=== PATIENT | female | born 1940 | race Caucasian/White ===

== ENCOUNTER 2016-08-11 11:42 | Observation (INO) | payer OTHER, BC ==
[2016-08-11 12:39] VITALS: BMI 31.9
[2016-08-11] MEDS ORDERED: morphine CARPU-JECT 4 MG/1 ML DISP.SYRIN IVPUSH ONE (13:02)
[2016-08-11] MEDS ORDERED: morphine CARPU-JECT 4 MG/1 ML DISP.SYRIN ONE (13:05)
--- NOTE | 2016-08-11 13:25 | PDOC ---
*Physical Exam - Vital Signs Last Vital Signs Temp Pulse Resp BP Pulse Ox 97.8 F 87 18 109/67 97 08/11/16 12:37 08/11/16 12:37 08/11/16 12:37 08/11/16 12:37 08/11/16 12:37 - Physical Exam Comments: 08/11/16 13:25 MIDLEVEL NOTE Pt seen by Midlevel Provider under my direct supervision. Pt interviewed and examined. Ancillary studies reviewed. I agree with plan as outlined by Midlevel Provider. 08/11/16 16:17 EKG Normal sinus rhythm 79, left axis deviation -27 Normal SD interval Incomplete bundle branch block with a QRS duration of 108 Prolonged QT with a QTC of 516 There is diffuse nonspecific ST-T wave abnormalities 08/11/16 16:18 Laboratory Results - last 24 hr 08/11/16 08/11/16 14:20 14:20 WBC 8.3 RBC 4.74 Hgb 13.5 Hct 41.2 MCV 86.8 MCHC 32.8 RDW 14.1 Plt Count 214 MPV 9.1 Neutrophils % 80.9 Lymphocytes % 11.3 Monocytes % 5.9 Eosinophils % 1.1 Basophils % 0.8 Sodium 139 Potassium 4.6 Chloride 101 Carbon Dioxide 30 Anion Gap 8 BUN 28 H Creatinine 0.9 Creat Clearance w eGFR > 60 Random Glucose 301 H* Calcium 9.0 Total Bilirubin 0.5 AST 38 H ALT 41 Alkaline Phosphatase 115 Creatine Kinase 79 Troponin I < 0.02 Total Protein 6.9 Albumin 3.6 08/11/16 16:19 X-rays fractured right humerus, fractured patella ED Treatment Course - LABORATORY CBC & Chemistry Diagram: 08/12/16 06:05 08/12/16 06:05 - Medications Given in the ED: ED Medications Discontinued Medications Generic Name Dose Route Start Last Admin Trade Name Freq PRN Reason Stop Dose Admin Morphine Sulfate 4 mg 08/11/16 13:02 08/11/16 13:12 Morphine Injection - IVPUSH 08/11/16 13:03 4 mg ONCE ONE Administration *DC/Admit/Observation/Transfer Diagnosis at time of Disposition: EKG abnormality Humeral shaft fracture Qualifiers: Encounter type: initial encounter Fracture type: closed Fracture morphology: spiral Fracture alignment: displaced Laterality: right Qualified Code(s): S42.341A - Displaced spiral fracture of shaft of humerus, right arm, initial encounter for closed fracture Patella fracture Qualifiers: Encounter type: initial encounter Fracture type: closed Fracture morphology: transverse Fracture alignment: nondisplaced Laterality: right Qualified Code(s) : S82.034A - Nondisplaced transverse fracture of right patella, initial encounter for closed fracture - Discharge Dispostion Condition at time of disposition: Stable Admit: Yes - Prescriptions
--- NOTE | 2016-08-11 14:21 | PDOC ---
History of Present Illness - General Chief Complaint: Injury Stated Complaint: FALL/ARM INJURY Time Seen by Provider: 08/11/16 13:01 History Source: Patient Exam Limitations: No Limitations - History of Present Illness Initial Comments: 08/11/16 14:36 Chief complaint: Fall Patient is 75-year-old female history of diabetes day she was leaving a diner and tripped over a cold in the parking lot injuring her right upper arm and knee area and patient has not been able to walk since. Patient states that she slightly hit the right side of her face, not on any antiplatelet or anticoagulation. Patient denies any dizziness or syncope prior to fall or LOC before after fall. Was witnessed. GENERAL/CONSTITUTIONAL: No fever, weakness. dizziness HEAD, EYES, EARS, NOSE AND THROAT: No change in vision. No ear pain or discharge. No sore throat. CARDIOVASCULAR: No chest pain RESPIRATORY: No shortness of breath or cough GASTROINTESTINAL: No pain, nausea, vomiting, diarrhea or constipation GENITOURINARY: No dysuria MUSCULOSKELETAL: No neck or back pain, + right upper arm, right knee SKIN: No rash NEUROLOGIC: No headache, vertigo, loss of consciousness, or loss of sensation. GENERAL: The patient is awake, alert, and fully oriented, in no acute distress. HEAD: Normal with no signs of trauma. EYES: Pupils equal, round and reactive to light, sclera anicteric, conjunctiva clear. EOMs intact ENT: pharynx: no erythema, no exudate, uvula midline NECK: supple CHEST: clear, nontender, rr ABD: soft, nontender EXTREMITIES: Right upper arm with tenderness, unable to move, no clavicular tenderness. Elbow with no pain or swelling, and arm distal to elbow without injury, good range of motion to the wrist and fingers with good strength and neurovascular intact. Right knee with mild swelling, contusion, tenderness, pain with movement. Rest of extremities, Normal range of motion, no edema. NEUROLOGICAL: Normal speech SKIN: Warm, Dry Past History - Past Medical History Allergies/Adverse Reactions: Allergies Allergy/AdvReac Type Severity Reaction Status Date / Time No Known Allergies Allergy Verified 08/11/16 12:39 Home Medications: Ambulatory Orders Cetirizine HCl 10 mg PO DAILY 08/11/16 Glipizide [Glipizide ER] 2.5 mg PO DAILY 08/11/16 Lisinopril 10 mg PO DAILY 08/11/16 Metformin HCl 500 mg PO DAILY 08/11/16 Montelukast Na [Singulair -] 10 mg PO HS 08/11/16 Simvastatin 20 mg PO DAILY 08/11/16 - Psycho/Social/Smoking Cessation Hx Suicidal Ideation: No Smoking History: Never smoked Information on smoking cessation initiated: No *Physical Exam - Vital Signs Last Vital Signs Temp Pulse Resp BP Pulse Ox 97.8 F 87 18 109/67 97 08/11/16 12:37 08/11/16 12:37 08/11/16 12:37 08/11/16 12:37 08/11/16 12:37 Procedures - Splinting Splint Location: Right: Knee Pre-Proc Neuro Vasc Exam: normal Pre-Made Type: velcro Post-Proc Neuro Vasc Exam: normal Sling: Yes Heart Score/ECG Review - ECG Intrepretation Rhythm: Regular Rhythm Comment:: 08/11/16 15:38 Normal sinus rhythm at 79 T-wave abnormalities, QTC 516 ED Treatment Course - LABORATORY CBC & Chemistry Diagram: 08/11/16 14:20 08/11/16 14:20 - RADIOLOGY Radiology Studies Ordered: Category Date Time Status FEMUR-RIGHT [RAD] Stat Radiology 08/11/16 13:11 Ordered HUMERUS-RIGHT [RAD] Stat Radiology 08/11/16 13:11 Ordered KNEE 3 POS-RIGHT [RAD] Stat Radiology 08/11/16 13:11 Ordered PELVIS [RAD] Stat Radiology 08/11/16 13:11 Ordered SHOULDER W/TRANS-RIGHT [RAD] Stat Radiology 08/11/16 13:11 Ordered - Medications Given in the ED: ED Medications Discontinued Medications Generic Name Dose Route Start Last Admin Trade Name Freq PRN Reason Stop Dose Admin Morphine Sulfate 4 mg 08/11/16 13:02 08/11/16 13:12 Morphine Injection - IVPUSH 08/11/16 13:03 4 mg ONCE ONE Administration Medical Decision Making - Medical Decision Making 08/11/16 14:39 Patient is diabetic, mechanical fall, with injury to the right upper arm and leg , patient was given IV morphine for pain, patient will get x-rays, will do labs given that patient is unable to walk. Will reassess 08/11/16 15:39 Patient with fractured right humerus, fractured patella, due to pain and difficulty moving, ambulating Unable to be safely discharged home, will discuss with hospitalist and Ortho. Discussed with CATRACHITA Ramírez from Dr. Baugh's service non-operative at this time, will place in sling and knee immobilizer *DC/Admit/Observation/Transfer Diagnosis at time of Disposition: EKG abnormality Humeral shaft fracture Qualifiers: Encounter type: initial encounter Fracture type: closed Fracture morphology: spiral Fracture alignment: displaced Laterality: right Qualified Code(s): S42.341A - Displaced spiral fracture of shaft of humerus, right arm, initial encounter for closed fracture Patella fracture Qualifiers: Encounter type: initial encounter Fracture type: closed Fracture morphology: transverse Fracture alignment: nondisplaced Laterality: right Qualified Code(s) : S82.034A - Nondisplaced transverse fracture of right patella, initial encounter for closed fracture - Discharge Dispostion Condition at time of disposition: Stable Admit: Yes
[2016-08-11 14:33] LABS: BASOPHIL 0.8 % (0-2.0); EOSINOPHIL 1.1 % (0-4.5); MCH 28.5 pg (25.7-33.7); MCHC 32.8 g/dl (32.0-36.0); MEAN CELL VOLUME 86.8 fl (80-96); MEAN PLT VOLUME 9.1 fl (7.5-11.1); NEUTROPHILS 80.9 % (42.8-82.8); PLATELET COUNT 214 K/MM3 (134-434); RDW 14.1 % (11.6-15.6); WHITE BLOOD COUNT 8.3 K/mm3 (4.0-10.0)
[2016-08-11 14:49] LABS: ALBUMIN 3.6 g/dl (3.4-5.0); ANION GAP 8 (8-16); BILIRUBIN,TOTAL 0.5 mg/dL (0.2-1.0); CO2 30 mmol/L (21-32); CREATININE 0.9 mg/dL (0.55-1.02); SGOT/AST 38 U/L (15-37); SGPT/ALT 41 U/L (12-78); TOT PROT 6.9 g/dl (6.4-8.2)
[2016-08-11 14:51] LABS: ALK PHOS 115 U/L (45-117); TROPONIN I < 0.02 ng/ml (0.00-0.05)
[2016-08-11 14:54] LABS: GLUCOSE,RANDOM 301 mg/dL (74-106)
[2016-08-11] MEDS ORDERED: morphine CARPU-JECT 2 MG/1 ML DISP.SYRIN IVPUSH ONE (15:37)
--- NOTE | 2016-08-11 16:05 | HP ---
CHIEF COMPLAINT: PCP: HISTORY OF PRESENT ILLNESS: 75-year-old female history of diabetes day she was leaving a diner and tripped in the parking lot injuring her right arm and right knee and has not been able to walk since. Patient states that she slightly hit the right side of her face, but no LOC. No headaches or vomiting. ER course was notable for: (1) right humerus x ray (2) right patella x ray (3) CXR Recent Travel: denies PAST MEDICAL HISTORY: DM , HTN, Dyslipidemia PAST SURGICAL HISTORY: hysterectomy, right tibia plateau fracture surgery Social History: Smoking: no Alcohol:no Drugs: no Family History: Allergies No Known Allergies Allergy (Verified 08/11/16 12:39) HOME MEDICATIONS: Home Medications Medication Instructions Recorded Cetirizine HCl 10 mg PO DAILY 08/11/16 Glipizide [Glipizide ER] 2.5 mg PO DAILY 08/11/16 Lisinopril 10 mg PO DAILY 08/11/16 Metformin HCl 500 mg PO DAILY 08/11/16 Montelukast Na [Singulair -] 10 mg PO HS 08/11/16 Simvastatin 20 mg PO DAILY 08/11/16 REVIEW OF SYSTEMS CONSTITUTIONAL: Absent: fever, chills, diaphoresis, generalized weakness, malaise, loss of appetite, weight change HEENT: Absent: rhinorrhea, nasal congestion, throat pain, throat swelling, difficulty swallowing, mouth swelling, ear pain, eye pain, visual changes CARDIOVASCULAR: Absent: chest pain, syncope, palpitations, irregular heart rate, lightheadedness , peripheral edema RESPIRATORY: Absent: cough, shortness of breath, dyspnea with exertion, orthopnea, wheezing, stridor, hemoptysis GASTROINTESTINAL: Absent: abdominal pain, abdominal distension, nausea, vomiting, diarrhea, constipation, melena, hematochezia GENITOURINARY: Absent: dysuria, frequency, urgency, hesitancy, hematuria, flank pain, genital pain MUSCULOSKELETAL: Absent: myalgia, joint swelling, back pain, neck pain +right knee pain and right humerus pain SKIN: Absent: rash, itching, pallor HEMATOLOGIC/IMMUNOLOGIC: Absent: easy bleeding, easy bruising, lymphadenopathy ENDOCRINE: Absent: unexplained weight gain, unexplained weight loss, heat intolerance, cold intolerance NEUROLOGIC: Absent: headache, focal weakness or paresthesias, dizziness, unsteady gait, seizure, mental status changes, bladder or bowel incontinence PSYCHIATRIC: Absent: anxiety, depression, suicidal or homicidal ideation, hallucinations. PHYSICAL EXAMINATION Vital Signs - 24 hr 08/11/16 12:37 Temperature 97.8 F Pulse Rate 87 Respiratory 18 Rate Blood Pressure 109/67 O2 Sat by Pulse 97 Oximetry (%) GENERAL: Awake, alert, and fully oriented, in no acute distress. HEAD:right cheek abrasion EYES: Pupils equal, round and reactive to light, extraocular movements intact, sclera anicteric, conjunctiva clear EARS, NOSE, THROAT: Ears normal, nares patent, oropharynx clear without exudates. Moist mucous membranes. NECK: Normal range of motion, supple without lymphadenopathy, JVD, or masses. LUNGS: Breath sounds equal, clear to auscultation bilaterally. No wheezes, and no crackles. No accessory muscle use. HEART: Regular rate and rhythm, normal S1 and S2 without murmur, rub or gallop. ABDOMEN: Soft, nontender, not distended, normoactive bowel sound MUSCULOSKELETAL: Normal range of motion at all joints. No bony deformities or tenderness. No CVA tenderness. UPPER EXTREMITIES: 2+ pulses, warm, well-perfused. No cyanosis. No clubbing, right arm tenderness, no obvious deformities. Decreased right handgrip. LOWER EXTREMITIES: 2+ pulses, warm, well-perfused. No calf tenderness. No peripheral edema. NEUROLOGICAL: Cranial nerves II-XII intact. Normal speech. PSYCHIATRIC: Cooperative. Good eye contact. Appropriate mood and affect. SKIN: Warm, dry, normal turgor Laboratory Results - last 24 hr 08/11/16 08/11/16 14:20 14:20 WBC 8.3 RBC 4.74 Hgb 13.5 Hct 41.2 MCV 86.8 MCHC 32.8 RDW 14.1 Plt Count 214 MPV 9.1 Neutrophils % 80.9 Lymphocytes % 11.3 Monocytes % 5.9 Eosinophils % 1.1 Basophils % 0.8 Sodium 139 Potassium 4.6 Chloride 101 Carbon Dioxide 30 Anion Gap 8 BUN 28 H Creatinine 0.9 Creat Clearance w eGFR > 60 Random Glucose 301 H* Calcium 9.0 Total Bilirubin 0.5 AST 38 H ALT 41 Alkaline Phosphatase 115 Creatine Kinase 79 Troponin I < 0.02 Total Protein 6.9 Albumin 3.6 Xray of right humerus - acute right humerus fracture xray of right knee- acute patellar fracture, old tibial plateau fracture EKG- NSR, nonspecific T wave changes ASSESSMENT/PLAN: 75yo female s/p fall and acute fractures to right humerus and right patella, unable to ambulate. #Right Patella, right humerus fracture-nonambulatory -admit to observation -orthopedics consultation - Dr. Francisco -morphine 2mg IV PRN if pain -joint immobilization #DM on metformin and glipizide -Novolog sliding scale -diabetic diet #HTN-controlled -lisinopril 10mg daily DVT ppx- moderate to high risk for DVT/PE due to 2 fracture sites and immobilization -enoxaparin 40mg Sc q24hrs Visit type - Emergency Visit Emergency Visit: Yes ED Registration Date: 08/11/16 Care time: The patient presented to the Emergency Department on the above date and was hospitalized for further evaluation of their emergent condition. - New Patient This patient is new to me today: Yes Date on this admission: 08/11/16 - Critical Care Critical Care patient: No
[2016-08-11] MEDS ORDERED: morphine CARPU-JECT 2 MG/1 ML DISP.SYRIN ONE (16:16)
[2016-08-11 16:21] LABS: INR 1.06 (0.82-1.09); PROTHROMBIN TIME (PATIENT) 11.7 SEC (9.98-11.88)
[2016-08-11 16:23] LABS: ACTIVATED PTT 28.9 SECONDS (26.9-34.4)
--- NOTE | 2016-08-11 18:40 | EKG ---
Test Reason : Blood Pressure : / mmHG Vent. Rate : 079 BPM Atrial Rate : 079 BPM P-R Int : 170 ms QRS Dur : 108 ms QT Int : 450 ms P-R-T Axes : 013 -27 110 degrees QTc Int : 516 ms SINUS RHYTHM WITH OCCASIONAL PREMATURE VENTRICULAR COMPLEXES NON-SPECIFIC INTRA-VENTRICULAR CONDUCTION DELAY ANTEROSEPTAL INFARCT (CITED ON OR BEFORE 11-AUG-2016) T WAVE ABNORMALITY, CONSIDER LATERAL ISCHEMIA ABNORMAL ECG WHEN COMPARED WITH ECG OF 15-DEC-2004 20:47, PREMATURE VENTRICULAR COMPLEXES ARE NOW PRESENT QRS AXIS SHIFTED LEFT Confirmed by PRASHANTH SCHREIBER MD ([id number]) on 08/11/2016 6:39:56 PM Referred By: Confirmed By:PRASHANTH SCHREIBER MD
[2016-08-11] MEDS: morphine CARPU-JECT 2 MG/1 ML DISP.SYRIN IVPUSH PRN (20:12)
--- NOTE | 2016-08-11 20:45 | CONSULT ---
Consult Consult Specialty:: orthopedics - History of Present Illness Chief Complaint: right knee, right arm History of Present Illness: 75y/o female c/o right arm and right knee pain since earlier today. She fell after she tripped leaving a diner. She was transported to the ER and had x-rays and was found to have a fracture of her right patella and humerus. She denies any numbness or tingling in her extremities. Her pain is worse with use and better with rest. She does have hx of tibia plateau fracture [place]IF [place] [address] Baugh in the right knee. - Past Medical History Cardio/Vascular: Yes: HTN, Hyperlipdemia Endocrine: Yes: Diabetes Mellitus - Alcohol/Substance Use Hx Alcohol Use: No - Smoking History Smoking history: Never smoked Home Medications - Allergies Allergies/Adverse Reactions: Allergies Allergy/AdvReac Type Severity Reaction Status Date / Time No Known Allergies Allergy Verified 08/11/16 12:39 - Home Medications Home Medications: Ambulatory Orders Cetirizine HCl 10 mg PO DAILY 08/11/16 Glipizide [Glipizide ER] 2.5 mg PO DAILY 08/11/16 Lisinopril 10 mg PO DAILY 08/11/16 Metformin HCl 500 mg PO DAILY 08/11/16 Montelukast Na [Singulair -] 10 mg PO HS 08/11/16 Simvastatin 20 mg PO DAILY 08/11/16 Review of Systems - Review of Systems Constitutional: reports: No Symptoms Eyes: reports: No Symptoms HENT: reports: No Symptoms Neck: reports: No Symptoms Cardiovascular: reports: No Symptoms Respiratory: reports: No Symptoms Gastrointestinal: reports: No Symptoms Genitourinary: reports: No Symptoms Breasts: reports: No Symptoms Reported Musculoskeletal: reports: Extremity Pain Integumentary: reports: No Symptoms Neurological: reports: No Symptoms Endocrine: reports: No Symptoms Hematology/Lymphatic: reports: No Symptoms Psychiatric: reports: No Symptoms Physical Exam Vital Signs: Vital Signs Temperature 97.5 F L 08/11/16 16:01 Pulse Rate 83 08/11/16 17:25 Respiratory Rate 18 08/11/16 17:25 Blood Pressure 95/58 08/11/16 17:25 O2 Sat by Pulse Oximetry (%) 94 L 08/11/16 17:25 Constitutional: Yes: Well Nourished, No Distress HENT: Yes: Normocephalic Musculoskeletal: Yes: Other (Right arm: no open wounds. Mild edema and ecchymosis of the right arm. No sign of infection. no erythema. Tenderness over the midshaft of the humerous. Compartments soft. NVID. Right knee: No open wounds. Mild edema of the knee. Tenderness over the patella. Compartments soft. Calf NT, NVID.) Imaging - Results X-ray: Report Reviewed, Image Reviewed (Right Knee: Nondispaced fx of patella Right Humerus: Comminuted midshaft fx of humerus.) Assessment/Plan #1 Right patella fracture #2 Right humerus fracture -Knee immoblizer and shoulder immoblizer for now, kicnaid brace ordered -PT FWB with Right knee immoblizer on at all times. NWB Right upper extremity -Pain control -DVT Prophylaxis -f/u with Dr. Baugh in 1 week
[2016-08-11] MEDS ORDERED: INSULIN SLIDING SCALE (NOVOLOG) 1 VIAL SQ SCH (22:00)
[2016-08-11] MEDS: ATORVASTATIN CA 20 MG TABLET (FP) PO SCH (22:02)
[2016-08-11] MEDS: MONTELUKAST NA 10 MG TABLET PO SCH (22:03)
[2016-08-11] MEDS: INSULIN SLIDING SCALE (NOVOLOG) 1 VIAL SQ SCH (22:03)
[2016-08-12] MEDS: morphine CARPU-JECT 2 MG/1 ML DISP.SYRIN IVPUSH PRN ×4 (02:06→21:22)
[2016-08-12] MEDS ORDERED: INSULIN (NOVOLOG) ASPART 100 UNITS/ML 10ML VIAL ONE ×4 (06:25→23:23)
[2016-08-12 07:26] LABS: MCH 28.4 pg (25.7-33.7); MEAN CELL VOLUME 86.1 fl (80-96); MEAN PLT VOLUME 8.7 fl (7.5-11.1); PLATELET COUNT 209 K/MM3 (134-434); WHITE BLOOD COUNT 9.2 K/mm3 (4.0-10.0)
[2016-08-12 08:34] LABS: CALCIUM 8.9 mg/dL (8.5-10.1); CREATININE 1.1 mg/dL (0.55-1.02)
--- NOTE | 2016-08-12 09:20 | PN ---
Progress Note (short form) - Note Progress Note: We were consulted for this patient, however Dr. 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 Will defer all treatment to Dr. Baugh's group.
[2016-08-12] MEDS: ENOXAPARIN NA (PORCINE) 40 MG/0.4 ML DISP.SYRIN SQ SCH (10:45)
[2016-08-12] MEDS: LISINOPRIL 10 MG TABLET (FP) PO SCH (10:45)
[2016-08-12] MEDS: INSULIN SLIDING SCALE (NOVOLOG) 1 VIAL SQ SCH ×3 (10:50→23:24)
[2016-08-12] MEDS ORDERED: SODIUM CHLORIDE 1,000 ML IV SCH (12:30)
--- NOTE | 2016-08-12 13:11 | PN ---
Physical Exam: SUBJECTIVE: Patient seen and examined. She cannot move her R arm, she pain is tolerable, PT was unable to walk her as immobilizer not placed yet. OBJECTIVE: Vital Signs Period Temp Pulse Resp BP Sys/Kline Pulse Ox Last 24 Hr 98 F-98.2 F 83-97 18-18 95-108/50-58 94-96 PE Neuro: alert, awake, cn 2-12intact RUE/ RLU sensation intact, RUE motor 2/5, RLE 3/5 Pulm: CTA anteriorly CV: s1s 2 rrr no mrg Abd: s nt nd +bs Ext: RUE hematoma, shoulder tenderness, RLE in immobilizer + tenderness Laboratory Results - last 24 hr 08/11/16 08/11/16 08/11/16 16:12 16:12 21:01 WBC RBC Hgb Hct MCV MCHC RDW Plt Count MPV INR 1.06 PTT (Actin FS) 28.9 Sodium Potassium Chloride Carbon Dioxide Anion Gap BUN Creatinine POC Glucometer 221 Random Glucose Calcium Blood Type A POSITIVE Antibody Screen Negative 08/12/16 08/12/16 08/12/16 06:04 06:05 06:05 WBC 9.2 RBC 4.25 Hgb 12.1 D Hct 36.6 MCV 86.1 MCHC 33.0 RDW 14.0 Plt Count 209 MPV 8.7 INR PTT (Actin FS) Sodium 140 Potassium 4.6 Chloride 103 Carbon Dioxide 26 Anion Gap 11 BUN 40 H D Creatinine 1.1 H D POC Glucometer 170 Random Glucose 162 H D Calcium 8.9 Blood Type Antibody Screen Active Medications Generic Name Dose Route Start Last Admin Trade Name Donna PRN Reason Stop Dose Admin Atorvastatin Calcium 20 mg 08/11/16 22:00 08/11/16 22:02 Lipitor - PO 20 mg HS DARIO Administration Enoxaparin Sodium 40 mg 08/12/16 10:00 08/12/16 10:45 Lovenox - SQ 40 mg DAILY DAIRO Administration Sodium Chloride 1,000 mls @ 83 mls/hr 08/12/16 12:30 08/12/16 12:48 Normal Saline - IV 08/13/16 00:33 83 mls/hr ASDIR DARIO Administration Insulin Aspart 1 vial 08/11/16 22:00 08/12/16 10:50 Novolog Vial Sliding Scale - SQ 2 units ACHS DARIO Administration Protocol Lisinopril 10 mg 08/12/16 10:00 08/12/16 10:45 Prinivil PO 10 mg DAILY DARIO Administration Montelukast Sodium 10 mg 08/11/16 22:00 08/11/16 22:03 Singulair - PO 10 mg HS DARIO Administration Morphine Sulfate 2 mg 08/11/16 17:28 08/12/16 08:55 Morphine Injection - IVPUSH 2 mg Q4H PRN Administration PAIN Assessment: 75 year old female pmhx of DM II, HTN, HLD, ORIF R knee in 2005 admitted s/p fall with right patella and humerus fracture. Plan: 1. Right patella fracture - Place in immobilizer - PT to evaluate - Follow up this week in Dr. Baugh office 2. Right humerus fracture - Awaiting sling, brace needed is available only in Dr. Baugh office - Morphine prn 3. JEROD - Start IVF 83cc/hr x1L 4. HTN - Continue lisinopril 10mg daily 5. HLD - Lipitor 20mg HS 6. DVT ppx - Lovenox sq' Dispo: - Home with VNS pending PT eval Visit type - Emergency Visit Emergency Visit: Yes ED Registration Date: 08/11/16 Care time: The patient presented to the Emergency Department on the above date and was hospitalized for further evaluation of their emergent condition. - New Patient This patient is new to me today: Yes Date on this admission: 08/12/16 - Critical Care Critical Care patient: No
[2016-08-12] MEDS: ATORVASTATIN CA 20 MG TABLET (FP) PO SCH (21:22)
[2016-08-12] MEDS: MONTELUKAST NA 10 MG TABLET PO SCH (21:22)
[2016-08-13] MEDS: INSULIN SLIDING SCALE (NOVOLOG) 1 VIAL SQ SCH ×2 (06:29→09:55)
[2016-08-13] MEDS ORDERED: INSULIN (NOVOLOG) ASPART 100 UNITS/ML 10ML VIAL ONE ×2 (06:29→09:50)
[2016-08-13 08:17] LABS: CALCIUM 8.4 mg/dL (8.5-10.1)
[2016-08-13] MEDS: ENOXAPARIN NA (PORCINE) 40 MG/0.4 ML DISP.SYRIN SQ SCH (09:52)
[2016-08-13] MEDS: LISINOPRIL 10 MG TABLET (FP) PO SCH (09:52)
[2016-08-13] MEDS: morphine CARPU-JECT 2 MG/1 ML DISP.SYRIN IVPUSH PRN (10:32)
[2016-08-13] MEDS ORDERED: oxyCODONE HCL 5 MG TABLET PO PRN (12:55)
[2016-08-13 12:57] VITALS: BP 115/85
[2016-08-13 15:02] VITALS: PULSE 95; TEMP 97.9
--- NOTE | 2016-08-13 18:42 | DS ---
Physical Exam: SUBJECTIVE: Patient seen and examined. She is stable to go home OBJECTIVE: Vital Signs Period Temp Pulse Resp BP Sys/Kline Pulse Ox Last 24 Hr 97.9 F-98.5 F 83-96 16-20 100-133/52-85 98-98 PE PE Neuro: alert, awake, cn 2-12intact RUE/ RLU sensation intact, RUE motor 2/5, RLE 3/5 Pulm: CTA anteriorly CV: s1s 2 rrr no mrg Abd: s nt nd +bs Ext: RUE hematoma, shoulder tenderness, RLE in immobilizer + tenderness + standing w/o difficulty at bedside Laboratory Results - last 24 hr 08/12/16 08/13/16 08/13/16 23:21 05:35 06:26 Sodium 138 Potassium 4.4 Chloride 105 Carbon Dioxide 24 Anion Gap 9 BUN 41 H Creatinine 1.0 POC Glucometer 167 157 Random Glucose 152 H Calcium 8.4 L HOSPITAL COURSE: Date of Admission:08/11/16 Date of Discharge: 08/13/16 Minutes to complete discharge: 35 Discharge Summary Reason For Visit: FRACTURE OF SHAFT OF HEMERUS,FRACTURE OF PATELLA Hospital Course: Initial Hospital Course: 75-year-old female history of diabetes, HTN, HLD, presented after leaving diner and tripped in the parking lot injuring her right arm and right knee and has not been able to walk since. Patient slightly hit the right side of her face, but no LOC. No headaches or vomiting. Subsequent Hospital Course/Progress Note/Discharge Summary by a/p: Assessment: 75 year old female pmhx of DM II, HTN, HLD, ORIF R knee in 2005 admitted s/p fall with right patella and humerus fracture. Plan: 1. Right patella fracture - Place in immobilizer - Ambulating w PT, FMW as tolerated, 4 prong cane - Follow up this week in Dr. Baugh office 2. Right humerus fracture - Awaiting sling, brace needed is available only in Dr. Baugh office - Percocet prn for home meds 3. JEROD - resolved s/p fluids 4. HTN - Continue lisinopril 10mg daily 5. HLD - Lipitor 20mg HS Dispo: - Home with VNS and family support - Meds as above and ortho follow up Condition: Stable - Instructions Diet, Activity, Other Instructions: Please return to the ED for any new, persistent, or worsening symptoms. Follow up with PCP in 1 week Follow up with Dr. Baugh this week for continued management Continue home medications as directed VNS has been set up for you Caution while ambulating, walk with walker at all times Referrals: Sukumar Baugh MD [Staff Physician] - Disposition: VNS/HOME HEALTH CARE - Home Medications Comprehensive Discharge Medication List: Ambulatory Orders Cetirizine HCl 10 mg PO DAILY 08/11/16 Glipizide [Glipizide ER] 2.5 mg PO DAILY 08/11/16 Lisinopril 10 mg PO DAILY 08/11/16 Metformin HCl 500 mg PO DAILY 08/11/16 Montelukast Na [Singulair -] 10 mg PO HS 08/11/16 Simvastatin 20 mg PO DAILY 08/11/16 Cane 1 each MC DAILY #1 each 08/12/16 Oxycodone HCl/Acetaminophen [Percocet 5-325 mg Tablet] 1 tab PO Q6H #20 tablet MDD 4 08/12/16 This patient is new to me today: No Emergency Visit: Yes ED Registration Date: 08/11/16 Care time: The patient presented to the Emergency Department on the above date and was hospitalized for further evaluation of their emergent condition. Critical Care patient: No - Discharge Referral Referred to [facility] No
== END 2016-08-13 16:55 | disposition home health service (06) ==
LOC: JER 11:42 → JERBED 16:01 → J6S 18:13
PROVIDERS: ADMIT Internal Medicine; ATTEND Nurse Practitioner Acute Care
DX: S42.341A Displaced spiral fracture of shaft of humerus, right arm, initial encounter for closed fracture (principal); S82.034A Nondisplaced transverse fracture of right patella, initial encounter for closed fracture; W01.0XXA Fall on same level from slipping, tripping and stumbling without subsequent striking against object, initial encounter; I10 Essential (primary) hypertension; N17.9 Acute kidney failure, unspecified; E78.5 Hyperlipidemia, unspecified; E11.9 Type 2 diabetes mellitus without complications; Y92.488 Other paved roadways as the place of occurrence of the external cause; Y93.89 Activity, other specified
CPT/HCPCS: 36415; 71010-TC; 72170-TC; 73030-TC-RT; 73060-TC-RT; 73552-TC-RT; 73562-TC-RT; 80048; 80053; 82550; 84484; 85025; 85027; 85610; 85730; 86850; 86900; 86901; 93005; 93010; 97116-GP; 97162-PG; 99283-25; G0378

== ENCOUNTER 2018-11-26 09:11 | Inpatient (IN) | payer OTHER, BC ==
[2018-11-26] MEDS ORDERED: DIPHTH,PERTUSS(ACELL),TET 0.5 ML DISP.SYRIN IM ONE ×2 (10:17→10:47)
[2018-11-26] MEDS ORDERED: VANCOMYCIN 1,000 MG in DEXTROSE 5%-WATER - 250 ML IVPB ONE (10:19)
[2018-11-26] MEDS ORDERED: PIPERACILLIN/TAZOB 4.5 GM 4.5 GM in DEXTROSE 5%-WATER - 100 ML IVPB ONE (10:19)
[2018-11-26] MEDS ORDERED: VANCOMYCIN 1 GRAM (PRE-DOCKED) 1,000 MG/250 ML BAG IVPB ONE ×2 (10:47→10:48)
[2018-11-26] MEDS ORDERED: PIPERACILLIN/TAZOB 4.5 GM 4.5 GM/100 ML BAG IVPB ONE (10:47)
[2018-11-26 10:57] LABS: BASO % 0.4 % (0-2.0); EOS % 0.6 % (0-4.5); HEMATOCRIT 37.1 % (32.4-45.2); LYMPH % 10.1 % (8-40); MCH 27.3 pg (25.7-33.7); MCHC 32.4 g/dl (32.0-36.0); MEAN CELL VOLUME 84.4 fl (80-96); MEAN PLT VOLUME 9.1 fl (7.5-11.1); MONO % 6.5 % (3.8-10.2); NEUT % 82.4 % (42.8-82.8); PLATELET COUNT 212 K/MM3 (134-434); RDW 15.2 % (11.6-15.6)
[2018-11-26 11:09] LABS: INR 1.05 (0.83-1.09); PROTHROMBIN TIME (PATIENT) 12.4 SEC (9.7-13.0)
--- NOTE | 2018-11-26 11:35 | PDOC ---
Documentation entered by Roque Solis SCRIBE, acting as scribe for Yvonne Dowell MD. Yvonne Dowell MD: This documentation has been prepared by the Will smith Aiswarya, SCRIBE, under my direction and personally reviewed by me in its entirety. I confirm that the documentation accurately reflects all work, treatment, procedures, and medical decision making performed by me. History of Present Illness - General Chief Complaint: Redness To Affected Area Stated Complaint: REDNESS/SWELLING TO WRIST Time Seen by Provider: 11/26/18 10:02 History Source: Patient Exam Limitations: No Limitations - History of Present Illness Initial Comments: 11/26/18 11:04 The patient is a 77 year old female, with a significant PMH of diabetes (NIDDM) , HTN, and HLD, who presents to the emergency department for evaluation of a left hand pain, swelling and redness. The patient states her grandson was playing with wood when the nail in the wood hit her left forearm 2 days ago. She reports initially some bleeding from a wound on her forearm that she was able to control with pressure. She states since the injury, the redness has extended from her forearm, down into the palms of her hands. Patient states it feels like pins and needles on palpation. Denies any other injury. Does not remember last tdap. Denies fevers, chills, shortness of breath, CP, headache and dizziness. Allergies: NKDA Past surgical history: Right leg plates/ screw 2006 Social history: None reported PCP:Dr. Gavin Valencia Past History - Past Medical History Allergies/Adverse Reactions: Allergies Allergy/AdvReac Type Severity Reaction Status Date / Time No Known Allergies Allergy Verified 11/26/18 09:20 Home Medications: Ambulatory Orders Cetirizine HCl 10 mg PO DAILY 08/11/16 Glipizide [Glipizide ER] 2.5 mg PO DAILY 08/11/16 Lisinopril 10 mg PO DAILY 08/11/16 Simvastatin 20 mg PO DAILY 08/11/16 Aspirin 81 mg PO DAILY 11/26/18 Montelukast Sodium [Singulair] 10 mg PO DAILY 11/26/18 Sitagliptin Phosphate [Januvia] 100 mg PO DAILY 11/26/18 Anemia: No Asthma: No Cancer: No Cardiac Disorders: No CVA: No COPD: No CHF: No Dementia: No Diabetes: Yes (NIDDM) GI Disorders: No Disorders: No HTN: Yes Hypercholesterolemia: Yes Liver Disease: No Seizures: No Thyroid Disease: No - Surgical History Abdominal Surgery: No Appendectomy: No Cardiac Surgery: No Cholecystectomy: No Lung Surgery: No Neurologic Surgery: No Orthopedic Surgery: Yes (R leg plate/screws 2006) - Suicide/Smoking/Psychosocial Hx Smoking History: Never smoked Have you smoked in the past 12 months: No Information on smoking cessation initiated: No Hx Alcohol Use: No Drug/Substance Use Hx: No Review of Systems - Review of Systems Able to Perform ROS?: Yes Comments:: 11/26/18 11:07 GENERAL/CONSTITUTIONAL: No fever or chills. No weakness. HEAD, EYES, EARS, NOSE AND THROAT: No change in vision. No ear pain or discharge. No sore throat. GASTROINTESTINAL: No nausea, vomiting, diarrhea or constipation. GENITOURINARY: No dysuria, frequency, or change in urination. CARDIOVASCULAR: No chest pain or shortness of breath. RESPIRATORY: No cough, wheezing, or hemoptysis. MUSCULOSKELETAL: No joint or muscle swelling or pain. No neck or back pain. SKIN: +left forearm redness, wound NEUROLOGIC: No headache, vertigo, loss of consciousness, or change in strength/ sensation. ENDOCRINE: No increased thirst. No abnormal weight change. HEMATOLOGIC/LYMPHATIC: No anemia, easy bleeding, or history of blood clots. ALLERGIC/IMMUNOLOGIC: No hives or skin allergy *Physical Exam - Vital Signs Last Vital Signs Temp Pulse Resp BP Pulse Ox 98.0 F 82 18 130/67 97 11/26/18 09:16 11/26/18 09:16 11/26/18 09:16 11/26/18 09:16 11/26/18 09:16 - Physical Exam Comments: 11/26/18 11:07 GENERAL: Awake, alert, and fully oriented, in no acute distress. Non toxic HEAD: No signs of trauma LUNGS: Breath sounds equal, clear to auscultation bilaterally. No wheezes, and no crackles HEART: Regular rate and rhythm, normal S1 and S2, no murmurs, rubs or gallops EXTREMITIES: L hand with fusiform edema of all digits and thenar aspect of hand. Hand held in flexion. Erythema and warmth throughout. 2+ radial pulse. Full strength extension, flexion, abduction of all digits. Normal sensation to entire hand. NEUROLOGICAL: Normal speech, cranial nerves intact, negative pronator drift, 5/ 5 strength in all 4 extremities, normal sensation to light touch in all 4 extremities, normal cerebellar exam, normal reflexes and tone SKIN: +1 mm ulcer to the ventral aspect distal left forearm with erythema tracking distally to the left hand and all digits. Heart Score/ECG Review #1 11/26/18 11:36 Twelve-lead EKG was performed and reviewed by me. Normal sinus rhythm, rate 76. Borderline axis. Left bundle branch block. No ST elevations. T wave inversions in 1 and aVL. When compared to EKG from August 2016, no significant changes. ED Treatment Course - LABORATORY CBC & Chemistry Diagram: 11/27/18 07:05 11/27/18 07:05 Medical Decision Making - Medical Decision Making 11/26/18 10:20 77yo left handed female hx NIDDM, HTN, HL presents to the ED with new swelling, pain, redness to the left hand after an injury with a nail to the forearm. Highly concerning for flexor tenosynovitis - pt with entire L hand held in flexion, +fusiform digits, and pain with passive extension Labs including cultures sent. Pt covered with Kurt Carranza given nail injury Will consult Dr. Bassett 11/26/18 11:17 No call back from Dr. Bassett yet Will call again 11/26/18 11:[address] Bassett Spoke with Dr. Hooker Agrees with management thus far, requests admission to hospitalist and NPO Pt's primary is Dr. Valencia, who is covered by Dr. Petty's group Dr. Dsouza covering their group today, we have paged her *DC/Admit/Observation/Transfer Diagnosis at time of Disposition: Suppurative tenosynovitis of flexor tendon of left hand - Discharge Dispostion Condition at time of disposition: Improved - Referrals - Patient Instructions - Post Discharge Activity - Attestations Physician Attestion: 11/27/18 10:17 I, Dr. Yvonne Dowell MD, attest that this document has been prepared under my direction and personally reviewed by me in its entirety. I further attest, that it accurately reflects all work, treatment, procedures and medical decision -making performed by me.
[2018-11-26 12:16] LABS: ALBUMIN 3.6 g/dl (3.4-5.0); BILIRUBIN,TOTAL 0.9 mg/dL (0.2-1); BLOOD UREA NITROGEN 20.5 mg/dL (7-18); CALCIUM 9.1 mg/dL (8.5-10.1); CREATININE 0.8 mg/dL (0.55-1.3); POTASSIUM 4.2 mmol/L (3.5-5.1); TOT PROT 6.8 g/dl (6.4-8.2)
[2018-11-26] MEDS ORDERED: MIDAZOLAM HCL 2 MG/2 ML SINGLE DOSE VIAL ONE (12:40)
[2018-11-26] MEDS ORDERED: PROPOFOL 20 ML ONE (12:40)
[2018-11-26] MEDS ORDERED: LIDOCAINE HCL 1%, 10 MG/ML (20ML VIAL) ONE (12:48)
[2018-11-26] MEDS ORDERED: LIDOCAINE HCL/PF 2% SDV 5ML VIAL ONE (13:31)
[2018-11-26] MEDS ORDERED: LORazepam 2 MG/ML SDV VIAL IVPUSH ONE (14:37)
--- NOTE | 2018-11-26 14:37 | CONSULT ---
Consult Consult Specialty:: General surgery Reason for Consultation:: left arm flexor tenosynovitis - History of Present Illness Chief Complaint: left arm infection History of Present Illness: 77 yo LHD female PMH diabetes (NIDDM), HTN, and HLD, who presents to the emergency department for evaluation of a left hand pain, swelling and redness. The patient states her grandson was playing with wood when the nail in the wood hit her left forearm 2 days ago. She reports initially some bleeding from a wound on her forearm that she was able to control with pressure. She states since the injury, the redness has extended from her forearm, down into the palms of her hands. the suspiciosn was for flexor tenosynovitis, we were called for emergent assessment. - History Source History Provided By: Patient, Medical Record Limitations to Obtaining History: No Limitations - Past Medical History Cardio/Vascular: Yes: HTN, Hyperlipdemia Endocrine: Yes: Diabetes Mellitus - Alcohol/Substance Use Hx Alcohol Use: No - Smoking History Smoking history: Never smoked Have you smoked in the past 12 months: No Home Medications - Allergies Allergies/Adverse Reactions: Allergies Allergy/AdvReac Type Severity Reaction Status Date / Time No Known Allergies Allergy Verified 11/26/18 09:20 - Home Medications Home Medications: Ambulatory Orders Cetirizine HCl 10 mg PO DAILY 08/11/16 Glipizide [Glipizide ER] 2.5 mg PO DAILY 08/11/16 Lisinopril 10 mg PO DAILY 08/11/16 Simvastatin 20 mg PO DAILY 08/11/16 Aspirin 81 mg PO DAILY 11/26/18 Montelukast Sodium [Singulair] 10 mg PO DAILY 11/26/18 Sitagliptin Phosphate [Januvia] 100 mg PO DAILY 11/26/18 Review of Systems - Review of Systems Constitutional: denies: Chills, Fever Eyes: denies: Blind Spots, Recent Change in Vision HENT: denies: Difficult Swallowing, Throat Pain Neck: denies: Decreased ROM, Tenderness Cardiovascular: denies: Chest Pain, Palpitations Respiratory: denies: Cough, SOB Gastrointestinal: denies: Abdominal Pain, Constipation, Diarrhea Genitourinary: denies: Discharge, Dysuria Breasts: reports: No Symptoms Reported. denies: Pain Musculoskeletal: denies: Crepitus, Muscle Pain, Muscle Cramps Integumentary: denies: Lesions, Lump, Pallor Neurological: denies: Seizure, Syncope Endocrine: denies: Unexplained Weight Gain, Unexplained Weight Loss Hematology/Lymphatic: denies: Easily Bruised, Excessive Bleeding Psychiatric: denies: Anxiety, Depression Physical Exam Vital Signs: Vital Signs Temperature 98.0 F 11/26/18 09:16 Pulse Rate 82 11/26/18 09:16 Respiratory Rate 18 11/26/18 09:16 Blood Pressure 130/67 11/26/18 09:16 O2 Sat by Pulse Oximetry (%) 98 11/26/18 12:35 Constitutional: Yes: Well Nourished, No Distress, Calm Eyes: Yes: Conjunctiva Clear, EOM Intact HENT: Yes: Atraumatic, Normocephalic Neck: Yes: Supple, Trachea Midline Cardiovascular: Yes: Regular Rate and Rhythm, S1, S2 Respiratory: Yes: Regular, CTA Bilaterally Gastrointestinal: Yes: Normal Bowel Sounds, Soft. No: Abdomen, Obese, Tenderness ...Rectal Exam: Yes: Deferred Renal/: No: CVA Tenderness - Left, CVA Tenderness - Right Breast(s): No: Discharge from Nipple, Skin Changes Musculoskeletal: No: Muscle Pain, Muscle Weakness Extremities: Yes: Erythema (volar aspect erythema 10cm proximal forearm, distal along hypothenar to area of annular juliane. fusiform swelling of ring and small , +tinel Left over TCL. tenderness on passive extension and resing flexed tenodesis.) Labs: CBC, BMP 11/26/18 10:38 11/26/18 11:43 Imaging - Results X-ray: Report Reviewed, Image Reviewed Problem List - Problems (1) Suppurative tenosynovitis of flexor tendon of left hand Assessment/Plan: NPO and IVF hydration broad spectrum IV antibiotics tenatnus OR for emergent I&D and carpal tunnel decompression of left hand Discussed with patient risks, benefits and alternatives of the aforementioned procedure, including but not limited to bleeding, infection, injury to adjacent structures, loss of function or amputation, need for further procedures, ; alternatives include antibiotics, delayed or no surgery - risks of this include failure of nonoperative therapy, sepsis, recurrence, . Patient desires to proceed with operation - will take to OR for above. Informed consent signed for same. Thank you for the opportunity to participate in the care of this patient. Code(s): M65.142 - OTHER INFECTIVE (TENO)SYNOVITIS, LEFT HAND (2) Diabetes Code(s): E11.9 - TYPE 2 DIABETES MELLITUS WITHOUT COMPLICATIONS Qualifiers: Diabetes mellitus type: type 2 (3) HLD (hyperlipidemia) Code(s): E78.5 - HYPERLIPIDEMIA, UNSPECIFIED Qualifiers: Hyperlipidemia type: pure hypercholesterolemia Qualified Code(s): E78.00 - Pure hypercholesterolemia, unspecified; E78.0 - Pure hypercholesterolemia (4) HTN (hypertension) Code(s): I10 - ESSENTIAL (PRIMARY) HYPERTENSION Qualifiers: Hypertension type: essential hypertension Qualified Code(s): I10 - Essential (primary) hypertension
--- NOTE | 2018-11-26 14:41 | OP ---
Operative Note - Note: Operative Date: 11/26/18 Pre-Operative Diagnosis: acute flexor tenosyovitis left forearm and hand Operation: incision and drainge left forearm and hand, left carpal tunnel release and median nerve neurolysis Findings: TP 275mmHg and TT 27mins, purulent exudate left small finger a1 juliane and left carpal tunnel Post-Operative Diagnosis: Same as Pre-op Surgeon: Piotr Hooker Anesthesiologist/PELLET PRESS OPERATOR: Iesha Rocha Anesthesia: General Specimens Removed: culture finger, palm, foreARM Estimated Blood Loss (mls): 2 Fluid Volume Replaced (mls): 500 Operative Report Dictated: Yes
[2018-11-26] MEDS ORDERED: ACETAMINOPHEN INJECTION 100 ML IVPB ONE (14:52)
[2018-11-26] MEDS ORDERED: ONDANSETRON 4 MG/2 ML VIAL IVPUSH PRN (15:23)
[2018-11-26] MEDS ORDERED: ACETAMINOPHEN 1000 MG/100 ML VIAL (NON FORMULARY) IVPB ONE (15:24)
[2018-11-26] MEDS ORDERED: LACTATED RINGERS SOLUTION 1,000 ML IV SCH (15:30)
--- NOTE | 2018-11-26 15:56 | HP ---
Admitting History and Physical - Admission Chief Complaint: came in with left arm sweling and pain History of Present Illness: 11/26/18 11:04 The patient is a 77 year old female, with a significant PMH of diabetes (NIDDM) , HTN, and HLD, who presents to the emergency department for evaluation of a left hand pain, swelling and redness. The patient states her grandson was playing with wood when the nail in the wood hit her left forearm 2 days ago. She reports initially some bleeding from a wound on her forearm that she was able to control with pressure. She states since the injury, the redness has extended from her forearm, down into the palms of her hands. Patient states it feels like pins and needles on palpation. Denies any other injury. Does not remember last tdap. Denies fevers, chills, shortness of breath, CP, headache and dizziness. in Er seen by surgery taken to OR and got vancomycin and zosyn - Past Medical History Cardiovascular: Yes: HTN, Hyperlipdemia Endocrine: Yes: Diabetes Mellitus - Smoking History Smoking history: Never smoked Have you smoked in the past 12 months: No - Alcohol/Substance Use Hx Alcohol Use: No Home Medications - Allergies Allergies/Adverse Reactions: Allergies Allergy/AdvReac Type Severity Reaction Status Date / Time No Known Allergies Allergy Verified 11/26/18 09:20 - Home Medications Home Medications: Ambulatory Orders Cetirizine HCl 10 mg PO DAILY 08/11/16 Glipizide [Glipizide ER] 2.5 mg PO DAILY 08/11/16 Lisinopril 10 mg PO DAILY 08/11/16 Simvastatin 20 mg PO DAILY 08/11/16 Aspirin 81 mg PO DAILY 11/26/18 Montelukast Sodium [Singulair] 10 mg PO DAILY 11/26/18 Sitagliptin Phosphate [Januvia] 100 mg PO DAILY 11/26/18 Review of Systems - Review of Systems Neck: reports: No Symptoms Cardiovascular: reports: No Symptoms Respiratory: reports: No Symptoms Gastrointestinal: reports: No Symptoms Genitourinary: reports: No Symptoms Physical Examination Vital Signs: Vital Signs Temperature 98.7 F 11/26/18 15:30 Pulse Rate 66 11/26/18 15:30 Respiratory Rate 13 11/26/18 15:30 Blood Pressure 114/50 L 11/26/18 15:30 O2 Sat by Pulse Oximetry (%) 97 11/26/18 15:30 Findings/Remarks: awake alert back from OR Labs: CBC, BMP 11/26/18 10:38 11/26/18 11:43 Problem List - Problems (1) Left arm swelling Assessment/Plan: acute flexor tensosynovitis with incision and drainge and left carpel tunner release pain control iv abx Code(s): M79.89 - OTHER SPECIFIED SOFT TISSUE DISORDERS (2) HLD (hyperlipidemia) Assessment/Plan: lpid profile statin Code(s): E78.5 - HYPERLIPIDEMIA, UNSPECIFIED (3) Diabetes Assessment/Plan: bgm sliding scale hgba1c Code(s): E11.9 - TYPE 2 DIABETES MELLITUS WITHOUT COMPLICATIONS Qualifiers: Diabetes mellitus type: type 2
[2018-11-26 16:11] VITALS: BMI 32.3
[2018-11-26] MEDS: INSULIN SLIDING SCALE (NOVOLOG) 1 VIAL SQ SCH ×2 (17:29→21:38)
[2018-11-26] MEDS ORDERED: DEXTROSE 5%-WATER - 50 ML IVPB ONE (17:33)
[2018-11-26] MEDS ORDERED: PIPERACILLIN/TAZOBACTAM 3.375 GM VIAL IVPB ONE (17:33)
--- NOTE | 2018-11-26 17:38 | PN ---
Progress Note (short form) - Note Progress Note: ID CONSULT DICTATED CELLULITIS/ ACUTE FLEXOR TENOSYNOVITIS L FOREARM/HAND S/P PUNCTURE WOUND DIABETES MELLITUS PENDING C/S EMPIRIC ZOSYN/VANCOMYCIN
[2018-11-26] MEDS ORDERED: VANCOMYCIN 1,000 MG in DEXTROSE 5%-WATER - 250 ML IVPB SCH (17:45)
[2018-11-26] MEDS ORDERED: PIPERACILLIN/TAZOB 3.375 GM 3.375 GM in DEXTROSE 5%-WATER - 50 ML IVPB SCH (18:00)
--- NOTE | 2018-11-26 18:15 | CONS ---
DATE OF CONSULTATION: DATE OF DICTATION: 11/26/2018 INFECTIOUS DISEASE CONSULTATION HISTORY OF PRESENT ILLNESS: The patient is a 77-year-old diabetic female who is evaluated for cellulitis and tenosynovitis. She had sustained a puncture wound to the flexor aspect of her left forearm on Friday, November 23, 2018. The patient was struck by a piece of wood with a nail in it, resulting in a puncture wound. She cleaned the wound out, washed it out, and observed. Approximately 24 hours later, she began to develop erythema. Over the past 24 hours she has had worsening erythema, warmth and swelling involving the flexor aspect of the left forearm with erythema and swelling extending to the palm as well as the dorsa aspect of the hand. She reports the erythema also extended proximally towards the elbow. Patient is a diabetic. She does not take insulin. She denies prior history of serious soft tissue infection requiring hospitalization or history of MRSA. PAST MEDICAL HISTORY: Positive for diabetes mellitus, hypertension, hyperlipidemia. ALLERGIES: No known allergies. MEDICATION: Glipizide, lisinopril, simvastatin, aspirin, Singulair, Januvia. SOCIAL HISTORY: Resides at home with family. Nonsmoker, nondrinker. SYSTEMS REVIEW: Neurologic: No loss of consciousness, seizure activity, focal weakness. Cardiac: Negative for chest pain or palpitations. Respiratory: Negative for cough or sputum production. Gastrointestinal: Negative vomiting or diarrhea. Genitourinary: Negative for urinary tract infection. LABORATORY DATA: White count 13.0, hematocrit 31.7, platelet count 212, creatinine 0.8. Cultures are pending. PHYSICAL EXAMINATION: General: On examination she is awake and alert, supine in bed. Vital signs: Temperature 98.7, blood pressure 114/50, pulse 66 regular, respirations 13 per minute. HEENT: Sclerae anicteric. Cardiovascular: Heart sounds S1, S2. Lungs: Clear. Abdomen: Soft, nontender. Extremities: The left upper extremity has a postoperative dressing in place, and it is splinted. Extremities negative for edema. IMPRESSION: 1. Cellulitis/acute flexor tenosynovitis left forearm and hand. 2. Diabetes mellitus. 3. Status post puncture wound to left forearm. Await blood and operative cultures, empiric antibiotic coverage with vancomycin and Zosyn, analgesics. The patient has been given tetanus toxoid. Will follow. Thank you for the kind referral. IRVIN VICTORIA M.D. [id number]
[2018-11-26] MEDS: PIPERACILLIN/TAZOB 3.375 GM 3.375 GM in DEXTROSE 5%-WATER - 50 ML IVPB SCH (18:49)
[2018-11-26] MEDS: VANCOMYCIN 1 GRAM (PRE-DOCKED) 1,000 MG/250 ML BAG IVPB SCH (21:38)
[2018-11-26] MEDS: ATORVASTATIN CA 10 MG TABLET (FP) PO SCH (21:38)
[2018-11-26] MEDS: oxyCODONE HCL 5 MG TABLET PO PRN (21:45)
[2018-11-27] MEDS ORDERED: DEXTROSE 5%-WATER - 50 ML IVPB ONE ×3 (00:40→17:33)
[2018-11-27] MEDS ORDERED: PIPERACILLIN/TAZOBACTAM 3.375 GM VIAL IVPB ONE ×3 (00:40→17:33)
[2018-11-27] MEDS: PIPERACILLIN/TAZOB 3.375 GM 3.375 GM in DEXTROSE 5%-WATER - 50 ML IVPB SCH ×5 (01:53→18:29)
[2018-11-27] MEDS: INSULIN SLIDING SCALE (NOVOLOG) 1 VIAL SQ SCH ×4 (06:19→21:38)
[2018-11-27 07:49] LABS: HEMATOCRIT 36.1 % (32.4-45.2); HEMOGLOBIN 11.8 GM/dL (10.7-15.3); MCH 27.4 pg (25.7-33.7); MCHC 32.5 g/dl (32.0-36.0); MEAN CELL VOLUME 84.1 fl (80-96); MEAN PLT VOLUME 8.9 fl (7.5-11.1); PLATELET COUNT 184 K/MM3 (134-434); RBC 4.29 M/mm3 (3.60-5.2); RDW 14.9 % (11.6-15.6); WHITE BLOOD COUNT 8.6 K/mm3 (4.0-10.0)
[2018-11-27 07:57] LABS: INR 1.07 (0.83-1.09); PROTHROMBIN TIME (PATIENT) 12.6 SEC (9.7-13.0)
[2018-11-27 08:18] LABS: BLOOD UREA NITROGEN 17.2 mg/dL (7-18); CALCIUM 8.7 mg/dL (8.5-10.1); CREATININE 0.9 mg/dL (0.55-1.3); MAGNESIUM 2.2 mg/dL (1.8-2.4); PHOSPHOROUS 2.9 mg/dL (2.5-4.9); POTASSIUM 4.1 mmol/L (3.5-5.1)
[2018-11-27 08:19] LABS: ALBUMIN 3.1 g/dl (3.4-5.0); BILIRUBIN,TOTAL 1.1 mg/dL (0.2-1); TOT PROT 6.3 g/dl (6.4-8.2)
--- NOTE | 2018-11-27 09:42 | PN ---
Progress Note, Physician Chief Complaint: left hand infection History of Present Illness: 77 yo LHD female PMH diabetes (NIDDM), HTN, and HLD, who presents to the emergency department for evaluation of a left hand pain, swelling and redness. she has been stable post operatively. swelling has improved, complains of pain in ring finger only - Current Medication List Current Medications: Active Medications Atorvastatin Calcium (Lipitor -) 10 mg PO HS DARIO Last Admin: 11/26/18 21:38 Dose: 10 mg Piperacillin Sod/Tazobactam (Sod 3.375 gm/ Dextrose) 50 mls @ 100 mls/hr IVPB Q8H-IV DARIO; Protocol Last Admin: 11/27/18 01:53 Dose: 100 mls/hr Vancomycin HCl (Vancomycin (Pre-Docked)) 1,000 mg in 250 mls @ 166.667 mls/hr IVPB Q12H DARIO; Protocol Last Admin: 11/26/18 21:38 Dose: 166.667 mls/hr Insulin Aspart (Novolog Vial Sliding Scale -) 1 vial SQ ACHS DARIO; Protocol Last Admin: 11/27/18 06:19 Dose: Not Given Ondansetron HCl (Zofran Injection) 4 mg IVPUSH Q6H PRN PRN Reason: NAUSEA AND/OR VOMITING Oxycodone HCl (Roxicodone -) 5 mg PO Q6H PRN PRN Reason: PAIN LEVEL 6-10 Last Admin: 11/26/18 21:45 Dose: 5 mg - Objective Vital Signs: Vital Signs Temperature 98.1 F 11/27/18 09:29 Pulse Rate 102 H 11/27/18 09:29 Respiratory Rate 20 11/27/18 09:29 Blood Pressure 109/62 11/27/18 09:29 O2 Sat by Pulse Oximetry (%) 98 11/26/18 21:00 Constitutional: Yes: Well Nourished, No Distress, Calm Eyes: Yes: Conjunctiva Clear, EOM Intact HENT: Yes: Atraumatic, Normocephalic Neck: Yes: Supple, Trachea Midline Cardiovascular: Yes: Regular Rate and Rhythm, S1, S2 Respiratory: Yes: Regular, CTA Bilaterally Gastrointestinal: Yes: Normal Bowel Sounds, Soft. No: Tenderness ...Rectal Exam: Yes: Deferred Genitourinary: No: CVA Tenderness - Left, CVA Tenderness - Right Breast(s): No: Discharge from Nipple, Gynecomastia Musculoskeletal: No: Joint Swelling, Muscle Pain Extremities: Yes: Erythema (edemal and erythema both improved. edema more than erythema. mid forearm to palm). No: Cool, Cyanosis Peripheral Pulses WNL: Yes Peripheral Pulses: Left Radial: 2+, Right Radial: 2+, Left Doralis Pedis: 2+, Right Dorsalis Pedis: 2+, Left Femoral: 2+, Right Femoral: 2+ Wound/Incision: Yes: Clean/Dry, Well Approximated, Dressing Removed, Reddened. No: Draining Neurological: Yes: Alert, Oriented Psychiatric: Yes: Alert, Oriented Labs: CBC, BMP 11/27/18 07:05 11/27/18 07:05 INR, PTT INR 1.07 (0.83-1.09) 11/27/18 07:05 Problem List - Problems (1) Suppurative tenosynovitis of flexor tendon of left hand Assessment/Plan: 77yo female MMP including DM with supperative flexor tenosynovitus of left hand POD#1 s/p I&D and CTR of left continued left arm elevation IV antibiotics per ID local wound care f/u cultures consider D/C on oral antibiotics at the discretion of primary team and ID will follow Code(s): M65.142 - OTHER INFECTIVE (TENO)SYNOVITIS, LEFT HAND (2) Diabetes Code(s): E11.9 - TYPE 2 DIABETES MELLITUS WITHOUT COMPLICATIONS Qualifiers: Diabetes mellitus type: type 2 (3) HLD (hyperlipidemia) Code(s): E78.5 - HYPERLIPIDEMIA, UNSPECIFIED Qualifiers: Hyperlipidemia type: pure hypercholesterolemia Qualified Code(s): E78.00 - Pure hypercholesterolemia, unspecified; E78.0 - Pure hypercholesterolemia (4) HTN (hypertension) Code(s): I10 - ESSENTIAL (PRIMARY) HYPERTENSION Qualifiers: Hypertension type: essential hypertension Qualified Code(s): I10 - Essential (primary) hypertension
--- NOTE | 2018-11-27 10:46 | PN ---
Progress Note, Physician Chief Complaint: sitting in chair feeling ok on iv abx - Current Medication List Current Medications: Active Medications Atorvastatin Calcium (Lipitor -) 10 mg PO HS DARIO Last Admin: 11/26/18 21:38 Dose: 10 mg Piperacillin Sod/Tazobactam (Sod 3.375 gm/ Dextrose) 50 mls @ 100 mls/hr IVPB Q8H-IV DARIO; Protocol Last Admin: 11/27/18 09:40 Dose: Not Given Vancomycin HCl (Vancomycin (Pre-Docked)) 1,000 mg in 250 mls @ 166.667 mls/hr IVPB Q12H DARIO; Protocol Last Admin: 11/26/18 21:38 Dose: 166.667 mls/hr Insulin Aspart (Novolog Vial Sliding Scale -) 1 vial SQ ACHS DARIO; Protocol Last Admin: 11/27/18 06:19 Dose: Not Given Ondansetron HCl (Zofran Injection) 4 mg IVPUSH Q6H PRN PRN Reason: NAUSEA AND/OR VOMITING Oxycodone HCl (Roxicodone -) 5 mg PO Q6H PRN PRN Reason: PAIN LEVEL 6-10 Last Admin: 11/26/18 21:45 Dose: 5 mg - Objective Vital Signs: Vital Signs Temperature 98.1 F 11/27/18 09:29 Pulse Rate 102 H 11/27/18 09:29 Respiratory Rate 20 11/27/18 09:29 Blood Pressure 109/62 11/27/18 09:29 O2 Sat by Pulse Oximetry (%) 98 11/26/18 21:00 Constitutional: Yes: Calm Cardiovascular: Yes: Regular Rate and Rhythm, S1, S2 Respiratory: Yes: CTA Bilaterally Gastrointestinal: Yes: Normal Bowel Sounds, Soft Extremities: Yes: Other (left arm in sling, able to move fingers) Edema: No Neurological: Yes: Alert, Oriented Labs: CBC, BMP 11/27/18 07:05 11/27/18 07:05 INR, PTT INR 1.07 (0.83-1.09) 11/27/18 07:05 Problem List - Problems (1) Left arm swelling Assessment/Plan: acute flexor tensosynovitis with incision and drainage and left carpel tunnel release pain control iv abx Code(s): M79.89 - OTHER SPECIFIED SOFT TISSUE DISORDERS (2) HLD (hyperlipidemia) Assessment/Plan: lpid profile statin Code(s): E78.5 - HYPERLIPIDEMIA, UNSPECIFIED Qualifiers: Hyperlipidemia type: pure hypercholesterolemia Qualified Code(s): E78.00 - Pure hypercholesterolemia, unspecified; E78.0 - Pure hypercholesterolemia (3) Diabetes Assessment/Plan: bgm sliding scale hgba1c 7.2 Code(s): E11.9 - TYPE 2 DIABETES MELLITUS WITHOUT COMPLICATIONS Qualifiers: Diabetes mellitus type: type 2
[2018-11-27] MEDS ORDERED: sitaGLIPtin PHOSPHATE 100 MG TABLET (FP) PO ONE (10:49)
[2018-11-27] MEDS ORDERED: PT OWN MED DRAWER 7, Y5N ONE ×2 (11:34→13:12)
[2018-11-27] MEDS: VANCOMYCIN 1 GRAM (PRE-DOCKED) 1,000 MG/250 ML BAG IVPB SCH ×2 (11:43→21:25)
[2018-11-27] MEDS: oxyCODONE HCL 5 MG TABLET PO PRN (13:07)
--- NOTE | 2018-11-27 13:51 | EKG ---
Test Reason : Blood Pressure : / mmHG Vent. 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
--- NOTE | 2018-11-27 14:01 | PN ---
Progress Note (short form) - Note Progress Note: Anesthesia post op note, POD#1, S/P Left carpal tunnel release and I&D of left hand and forearm under GA. VSS. ambulating. No apparent post anesthesia complications.
[2018-11-27] MEDS: ATORVASTATIN CA 10 MG TABLET (FP) PO SCH (21:25)
[2018-11-27] MEDS: MONTELUKAST NA 10 MG TABLET PO SCH (21:25)
[2018-11-28] MEDS ORDERED: DEXTROSE 5%-WATER - 50 ML IVPB ONE ×3 (00:11→17:47)
[2018-11-28] MEDS ORDERED: PIPERACILLIN/TAZOBACTAM 3.375 GM VIAL IVPB ONE ×3 (00:11→17:47)
[2018-11-28] MEDS: PIPERACILLIN/TAZOB 3.375 GM 3.375 GM in DEXTROSE 5%-WATER - 50 ML IVPB SCH ×3 (01:30→18:07)
[2018-11-28] MEDS: INSULIN SLIDING SCALE (NOVOLOG) 1 VIAL SQ SCH ×4 (06:07→21:39)
[2018-11-28] MEDS: sitaGLIPtin PHOSPHATE 100 MG TABLET (FP) PO SCH (07:04)
--- NOTE | 2018-11-28 07:28 | PN ---
Progress Note, Physician Chief Complaint: left hand infection History of Present Illness: 77 yo LHD female PMH diabetes (NIDDM), HTN, and HLD, who presents to the emergency department for evaluation of a left hand pain, swelling and redness. she has been stable post operatively. swelling has improved, complains of pain in ring finger only - Current Medication List Current Medications: Active Medications Atorvastatin Calcium (Lipitor -) 10 mg PO HS [facility] Last Admin: 11/27/18 21:25 Dose: 10 mg Piperacillin Sod/Tazobactam (Sod 3.375 gm/ Dextrose) 50 mls @ 100 mls/hr IVPB Q8H-IV [facility]; Protocol Last Admin: 11/28/18 01:30 Dose: 100 mls/hr Vancomycin HCl (Vancomycin (Pre-Docked)) 1,000 mg in 250 mls @ 166.667 mls/hr IVPB Q12H [facility]; Protocol Last Admin: 11/27/18 21:25 Dose: 166.667 mls/hr Insulin Aspart (Novolog Vial Sliding Scale -) 1 vial SQ ACHS [facility]; Protocol Last Admin: 11/28/18 06:07 Dose: Not Given Montelukast Sodium (Singulair -) 10 mg PO [facility] Last Admin: 11/27/18 21:25 Dose: 10 mg Ondansetron HCl (Zofran Injection) 4 mg IVPUSH Q6H PRN PRN Reason: NAUSEA AND/OR VOMITING Oxycodone HCl (Roxicodone -) 5 mg PO Q6H PRN PRN Reason: PAIN LEVEL 6-10 Last Admin: 11/27/18 13:07 Dose: 5 mg Sitagliptin Phosphate (Januvia -) 100 mg PO DAILY@0700 [facility] Last Admin: 11/28/18 07:04 Dose: 100 mg - Objective Vital Signs: Vital Signs Temperature 98.4 F 11/28/18 05:00 Pulse Rate 74 11/28/18 05:00 Respiratory Rate 18 11/28/18 05:00 Blood Pressure 108/54 L 11/28/18 05:00 O2 Sat by Pulse Oximetry (%) 98 11/27/18 10:00 Vital Signs Period Temp Pulse Resp BP Sys/Kline Pulse Ox Last 24 Hr 97.6 F-98.4 F 74-84 18-18 108-127/54-66 Constitutional: Yes: Well Nourished, No Distress, Calm Eyes: Yes: Conjunctiva Clear, EOM Intact HENT: Yes: Atraumatic, Normocephalic Neck: Yes: Supple, Trachea Midline Cardiovascular: Yes: Regular Rate and Rhythm, S1, S2 Respiratory: Yes: Regular, CTA Bilaterally Gastrointestinal: Yes: Normal Bowel Sounds, Soft ...Rectal Exam: Yes: Deferred Genitourinary: No: CVA Tenderness - Left, CVA Tenderness - Right Breast(s): No: Dimpling, Nipple Inversion Musculoskeletal: No: Joint Swelling, Muscle Pain Extremities: No: Cool, Cyanosis Edema: No Peripheral Pulses WNL: Yes Peripheral Pulses: Left Radial: 2+, Right Radial: 2+, Left Doralis Pedis: 2+, Right Dorsalis Pedis: 2+, Left Femoral: 2+, Right Femoral: 2+ Integumentary: No: Jaundice, Skin Tear, Tattoos Wound/Incision: Yes: Clean/Dry, Well Approximated, Dressing Dry and Intact, Dressing Removed Neurological: Yes: Alert, Oriented Psychiatric: Yes: Alert, Oriented Labs: CBC, BMP 11/27/18 07:05 11/27/18 07:05 INR, PTT INR 1.07 (0.83-1.09) 11/27/18 07:05 Problem List - Problems (1) Suppurative tenosynovitis of flexor tendon of left hand Assessment/Plan: 77yo female MMP including DM with supperative flexor tenosynovitus of left hand POD#2 s/p I&D and CTR of left continued left arm elevation IV antibiotics per ID local wound care by RN ordered going forward f/u cultures consider D/C on oral antibiotics at the discretion of primary team and ID will follow Code(s): M65.142 - OTHER INFECTIVE (TENO)SYNOVITIS, LEFT HAND (2) Diabetes Code(s): E11.9 - TYPE 2 DIABETES MELLITUS WITHOUT COMPLICATIONS Qualifiers: Diabetes mellitus type: type 2 (3) HLD (hyperlipidemia) Code(s): E78.5 - HYPERLIPIDEMIA, UNSPECIFIED Qualifiers: Hyperlipidemia type: pure hypercholesterolemia Qualified Code(s): E78.00 - Pure hypercholesterolemia, unspecified; E78.0 - Pure hypercholesterolemia (4) HTN (hypertension) Code(s): I10 - ESSENTIAL (PRIMARY) HYPERTENSION Qualifiers: Hypertension type: essential hypertension Qualified Code(s): I10 - Essential (primary) hypertension
--- NOTE | 2018-11-28 09:46 | OP ---
DATE OF OPERATION: 11/26/2018 PREOPERATIVE DIAGNOSIS: Acute flexor tenosynovitis, left hand and forearm. POSTOPERATIVE DIAGNOSIS: Acute flexor tenosynovitis, left hand and forearm. PROCEDURE: Incision and drainage of left forearm and hand flexor tenosynovitis, carpal tunnel release with median nerve neurolysis. ATTENDING SURGEON: Piotr Hooker MD DINKEY DISPATCHER: No one. CAGER OPERATOR: Iesha Leiva CRNA ANESTHESIA TYPE: General. ESTIMATED BLOOD LOSS: 2 mL. INTRAVENOUS FLUID ADMINISTERED: Crystalloid, 500 mL. SPECIMENS SENT: Wound cultures from the small finger, palm, and forearm. BRIEF FINDINGS: Patient had a purulent exudate in the small finger, A1 juliane area, left carpal tunnel also purulent exudate. TOURNIQUET PRESSURE: 275 mmHg. TOURNIQUET TIME: 27 minutes. . INDICATIONS: Patient is a 77-year-old female with a deep puncture wound to the left forearm volar aspect accidental. She had ensuing redness and swelling that extended distally into the fingers from the forearm with red swelling and inability to flex and loss of sensation. She was counseled regarding risks, benefits, and alternatives to surgical approach, signed informed consent, and was taken for this procedure. DESCRIPTION OF PROCEDURE: The patient was brought to the operating room. She was placed in supine position on the operating table. The lower extremities had SCDs placed to compression. She was induced with general anesthesia and LMA was placed in the airway by Anesthesia without incident. The left arm was perpendicular to the bodys midline axis at the shoulder. It was prepped and draped into a standard surgical field on a hand table. At which point, we began to exsanguinate the arm after a formal time-out was completed identifying the operative site and procedure. With all parties in agreement, we exsanguinated the arm and inflated the tourniquet to a pressure of 275 mmHg. We began first with a volar aspect approach. A cruciate incision was made at the puncture site, which was apparent redness. It was incised with a 15-blade scalpel, deepened and widened through subcutaneous tissue. Care was taken to inspect down the missile tract to the fascia belly, open the fascia of the flexor muscles both deep and superficial. This was achieved through this cruciate incision. There appeared to be no purulent material. It was tracked and explored in all aspects. We then turned our attention to the carpal tunnel. A standard carpal tunnel incision was scribed at the skin using the ring finger to localize the outlet of the carpal tunnel in the palm in deep flexion. We proceeded with an incision of the palm. It was continued with a scalpel, deepened and widened through the subcutaneous tissue. Care was taken to dissect through the subcutaneous fat to the palmar fascia, which was also opened in direct visualization, and a self-retaining retractor installed. A [place] elevator was passed above the transverse carpal ligament, and then, with the self-retaining retractor and in place, adequate dissection of the palmar fascia through and through the transverse carpal ligaments distal aspect. This was done under direct visualization. There was a small amount of murky transudative material that was present in the flexor sheath in the carpal tunnel. The carpal tunnel contents was protected with a [place] elevator, and the transverse carpal ligament was opened above it using tenotomy scissors through the level of the wrist. There was increased pressure noted and there was purulent exudate, which was cultured and sent for specimen labeled wrist or carpal tunnel. There was also specimen of the fluid that was apparent in the forearm that was sent labeled forearm. We proceeded irrigation of the site, approximately 500 mL of sterile irrigation fluid was used. We turned our attention then to the final Dwight incision which was scribed over the first annular juliane for the ring and small fingers. With this in place, they were opened, and the flexor sheath of the first annular juliane was opened. There appeared to be a murky transudative fluid in the small finger, which was not present in the ring finger. Both were opened. The first annular pulleys were opened transversely, and the flexor tendons inspected. They appeared to be adequate and intact with free tendon glide. Each of the sites was irrigated with an additional 500 mL of sterile irrigation fluid. We then turned our attention finally to closure of the transverse carpal incision. It was done with a 4-0 vertical mattress suture across the palmar skin, additional loose closure proximally and distally to the mattress suture. The patient was then packed using 0.25-inch Iodoform packing at the annular juliane incisions for the ring and small finger as well as the forearm. Arm was cleaned, sterile dressings were placed, and the patient was splinted with a volar resting splint. Patient was awoken from general anesthesia having tolerated the procedure well, was stable throughout, tourniquet was relieved, hemostasis was apparent, and patient was returned to recovery in stable condition. Instrument counts were correct. MD JENNIFER Dela Cruz/[id number]
[2018-11-28] MEDS: VANCOMYCIN 1 GRAM (PRE-DOCKED) 1,000 MG/250 ML BAG IVPB SCH ×2 (10:06→21:34)
--- NOTE | 2018-11-28 10:53 | PN ---
Progress Note, Physician History of Present Illness: OOB IN CHAIR NO C/O L UE PAIN REPORTS BETTER ROM NO F/C WBC WNL C/S NO GROWTH - Current Medication List Current Medications: Active Medications Atorvastatin Calcium (Lipitor -) 10 mg PO HS [facility] Last Admin: 11/27/18 21:25 Dose: 10 mg Piperacillin Sod/Tazobactam (Sod 3.375 gm/ Dextrose) 50 mls @ 100 mls/hr IVPB Q8H-IV [facility]; Protocol Last Admin: 11/28/18 10:06 Dose: 100 mls/hr Vancomycin HCl (Vancomycin (Pre-Docked)) 1,000 mg in 250 mls @ 166.667 mls/hr IVPB Q12H [facility]; Protocol Last Admin: 11/28/18 10:06 Dose: 166.667 mls/hr Insulin Aspart (Novolog Vial Sliding Scale -) 1 vial SQ ACHS [facility]; Protocol Last Admin: 11/28/18 06:07 Dose: Not Given Montelukast Sodium (Singulair -) 10 mg PO [facility] Last Admin: 11/27/18 21:25 Dose: 10 mg Ondansetron HCl (Zofran Injection) 4 mg IVPUSH Q6H PRN PRN Reason: NAUSEA AND/OR VOMITING Oxycodone HCl (Roxicodone -) 5 mg PO Q6H PRN PRN Reason: PAIN LEVEL 6-10 Last Admin: 11/27/18 13:07 Dose: 5 mg Sitagliptin Phosphate (Januvia -) 100 mg PO DAILY@0700 [facility] Last Admin: 11/28/18 07:04 Dose: 100 mg - Objective Vital Signs: Vital Signs Temperature 98.4 F 11/28/18 05:00 Pulse Rate 74 11/28/18 05:00 Respiratory Rate 18 11/28/18 05:00 Blood Pressure 108/54 L 11/28/18 05:00 O2 Sat by Pulse Oximetry (%) 98 11/27/18 10:00 Constitutional: Yes: No Distress Cardiovascular: Yes: Regular Rate and Rhythm, S1, S2 Respiratory: Yes: CTA Bilaterally Gastrointestinal: Yes: Normal Bowel Sounds, Soft. No: Tenderness Extremities: Yes: Other (MINIMAL SWELLING/ ERYTHEMA L HYPOTHENAR EMINENCE. INCISIONAL WOUNDS W/O DRAINAGE) Labs: CBC, BMP 11/27/18 07:05 11/27/18 07:05 INR, PTT INR 1.07 (0.83-1.09) 11/27/18 07:05 Assessment/Plan CELLULITIS/ AC FLEXOR TENOSYNOVITIS L FOREARM/ HAND S/P I&D S/P PUNCTURE WOUND DIABETES MELLITUS AWAIT C/S CONTINUE VANCOMYCIN/ ZOSYN
--- NOTE | 2018-11-28 14:30 | PN ---
Progress Note, Physician Chief Complaint: Acute Flexor Tensosynovitis Left Carpel Tunnel Release History of Present Illness: Previous notes and events reviewed awake and alert NAD sts pain is controlled denies chest pain or SOB - Current Medication List Current Medications: Active Medications Atorvastatin Calcium (Lipitor -) 10 mg PO [facility] Last Admin: 11/27/18 21:25 Dose: 10 mg Piperacillin Sod/Tazobactam (Sod 3.375 gm/ Dextrose) 50 mls @ 100 mls/hr IVPB Q8H-IV [facility]; Protocol Last Admin: 11/28/18 10:06 Dose: 100 mls/hr Vancomycin HCl (Vancomycin (Pre-Docked)) 1,000 mg in 250 mls @ 166.667 mls/hr IVPB Q12H [facility]; Protocol Last Admin: 11/28/18 10:06 Dose: 166.667 mls/hr Insulin Aspart (Novolog Vial Sliding Scale -) 1 vial SQ ACHS [facility]; Protocol Last Admin: 11/28/18 12:06 Dose: Not Given Montelukast Sodium (Singulair -) 10 mg PO [facility] Last Admin: 11/27/18 21:25 Dose: 10 mg Ondansetron HCl (Zofran Injection) 4 mg IVPUSH Q6H PRN PRN Reason: NAUSEA AND/OR VOMITING Oxycodone HCl (Roxicodone -) 5 mg PO Q6H PRN PRN Reason: PAIN LEVEL 6-10 Last Admin: 11/27/18 13:07 Dose: 5 mg Sitagliptin Phosphate (Januvia -) 100 mg PO DAILY@0700 [facility] Last Admin: 11/28/18 07:04 Dose: 100 mg - Objective Vital Signs: Vital Signs Temperature 98.4 F 11/28/18 09:00 Pulse Rate 74 11/28/18 09:00 Respiratory Rate 18 11/28/18 09:00 Blood Pressure 108/54 L 11/28/18 09:00 O2 Sat by Pulse Oximetry (%) 98 11/27/18 10:00 Constitutional: Yes: No Distress, Calm Eyes: Yes: Conjunctiva Clear HENT: Yes: Atraumatic Cardiovascular: Yes: Regular Rate and Rhythm Respiratory: Yes: Regular, CTA Bilaterally Gastrointestinal: Yes: Normal Bowel Sounds, Soft Musculoskeletal: Yes: Muscle Weakness Extremities: Yes: WNL Edema: No Wound/Incision: Yes: Dressing Dry and Intact Neurological: Yes: Alert, Oriented Psychiatric: Yes: Alert, Oriented Labs: CBC, BMP 11/27/18 07:05 11/27/18 07:05 INR, PTT INR 1.07 (0.83-1.09) 11/27/18 07:05 Microbiology 11/26/18 13:30 Arm - Left Forearm Gram Stain - Final 11/26/18 13:30 Arm - Left Forearm Wound Culture - Final NO GROWTH AFTER 48 HOURS INCUBATION 11/26/18 13:30 Finger - Left Small Finger Gram Stain - Final 11/26/18 13:30 Finger - Left Small Finger Wound Culture - Final NO GROWTH AFTER 48 HOURS INCUBATION 11/26/18 13:30 Hand - Left Gram Stain - Final 11/26/18 13:30 Hand - Left Wound Culture - Final NO GROWTH AFTER 48 HOURS INCUBATION 11/26/18 10:31 Blood - Peripheral Venous Blood Culture - Preliminary NO GROWTH OBTAINED AFTER 48 HOURS, INCUBATION TO CONTINUE FOR 3 DAYS. 11/26/18 10:42 Blood - Peripheral Venous Blood Culture - Preliminary NO GROWTH OBTAINED AFTER 48 HOURS, INCUBATION TO CONTINUE FOR 3 DAYS. Problem List - Problems (1) Diabetes Assessment/Plan: -BGM ACHS -ISS -Sitagliptan -diabetic diet Code(s): E11.9 - TYPE 2 DIABETES MELLITUS WITHOUT COMPLICATIONS Qualifiers: Diabetes mellitus type: type 2 (2) HLD (hyperlipidemia) Assessment/Plan: -Atorvastatin Code(s): E78.5 - HYPERLIPIDEMIA, UNSPECIFIED Qualifiers: Hyperlipidemia type: pure hypercholesterolemia Qualified Code(s): E78.00 - Pure hypercholesterolemia, unspecified; E78.0 - Pure hypercholesterolemia (3) Left arm swelling Assessment/Plan: -Vancomycin and Zosyn -ID on board -no leukocytosis -afebrile -POD #2 Left carpel tunnel release Code(s): M79.89 - OTHER SPECIFIED SOFT TISSUE DISORDERS (4) Suppurative tenosynovitis of flexor tendon of left hand Assessment/Plan: -pain control -vancomycin and zosyn Code(s): M65.142 - OTHER INFECTIVE (TENO)SYNOVITIS, LEFT HAND Assessment/Plan see problem list dvt ppx
[2018-11-28] MEDS ORDERED: PT OWN MED DRAWER 7, Y5N ONE (21:08)
[2018-11-28] MEDS: ATORVASTATIN CA 10 MG TABLET (FP) PO SCH (21:33)
[2018-11-28] MEDS: MONTELUKAST NA 10 MG TABLET PO SCH (21:33)
[2018-11-29] MEDS ORDERED: PIPERACILLIN/TAZOBACTAM 3.375 GM VIAL IVPB ONE ×3 (01:29→17:38)
[2018-11-29] MEDS ORDERED: DEXTROSE 5%-WATER - 50 ML IVPB ONE ×3 (01:30→17:38)
[2018-11-29] MEDS: PIPERACILLIN/TAZOB 3.375 GM 3.375 GM in DEXTROSE 5%-WATER - 50 ML IVPB SCH ×3 (02:05→17:48)
[2018-11-29] MEDS ORDERED: PT OWN MED DRAWER 7, Y5N ONE (05:46)
[2018-11-29] MEDS: sitaGLIPtin PHOSPHATE 100 MG TABLET (FP) PO SCH (06:07)
[2018-11-29] MEDS: INSULIN SLIDING SCALE (NOVOLOG) 1 VIAL SQ SCH ×4 (06:10→22:11)
[2018-11-29 09:14] LABS: HEMATOCRIT 37.8 % (32.4-45.2); HEMOGLOBIN 12.4 GM/dL (10.7-15.3); MCH 27.6 pg (25.7-33.7); MCHC 32.8 g/dl (32.0-36.0); MEAN CELL VOLUME 84.2 fl (80-96); MEAN PLT VOLUME 9.1 fl (7.5-11.1); PLATELET COUNT 239 K/MM3 (134-434); RBC 4.49 M/mm3 (3.60-5.2); RDW 14.5 % (11.6-15.6); WHITE BLOOD COUNT 6.7 K/mm3 (4.0-10.0)
[2018-11-29 09:51] LABS: ALBUMIN 3.1 g/dl (3.4-5.0); BILIRUBIN,TOTAL 1.4 mg/dL (0.2-1); BLOOD UREA NITROGEN 12.3 mg/dL (7-18); CALCIUM 9.1 mg/dL (8.5-10.1); POTASSIUM 4.2 mmol/L (3.5-5.1); TOT PROT 6.7 g/dl (6.4-8.2)
--- NOTE | 2018-11-29 10:39 | PN ---
Progress Note, Physician Chief Complaint: left hand infection History of Present Illness: 77 yo LHD female PMH diabetes (NIDDM), HTN, and HLD, who presents to the emergency department for evaluation of a left hand pain, swelling and redness. she has been stable post operatively. swelling and motion have both improved. - Current Medication List Current Medications: Active Medications Atorvastatin Calcium (Lipitor -) 10 mg PO HS [facility] Last Admin: 11/28/18 21:33 Dose: 10 mg Piperacillin Sod/Tazobactam (Sod 3.375 gm/ Dextrose) 50 mls @ 100 mls/hr IVPB Q8H-[facility]; Protocol Last Admin: 11/29/18 09:42 Dose: 100 mls/hr Vancomycin HCl (Vancomycin (Pre-Docked)) 1,000 mg in 250 mls @ 166.667 mls/hr IVPB Q12H [facility]; Protocol Last Admin: 11/28/18 21:34 Dose: 166.667 mls/hr Insulin Aspart (Novolog Vial Sliding Scale -) 1 vial SQ ACHS [facility]; Protocol Last Admin: 11/29/18 06:10 Dose: Not Given Montelukast Sodium (Singulair -) 10 mg PO HS [facility] Last Admin: 11/28/18 21:33 Dose: 10 mg Ondansetron HCl (Zofran Injection) 4 mg IVPUSH Q6H PRN PRN Reason: NAUSEA AND/OR VOMITING Oxycodone HCl (Roxicodone -) 5 mg PO Q6H PRN PRN Reason: PAIN LEVEL 6-10 Last Admin: 11/27/18 13:07 Dose: 5 mg Sitagliptin Phosphate (Januvia -) 100 mg PO DAILY@0700 [facility] Last Admin: 11/29/18 06:07 Dose: 100 mg - Objective Vital Signs: Vital Signs Temperature 97.8 F 11/29/18 09:18 Pulse Rate 105 H 11/29/18 09:18 Respiratory Rate 17 11/29/18 09:18 Blood Pressure 117/65 11/29/18 09:18 O2 Sat by Pulse Oximetry (%) 98 11/27/18 10:00 Vital Signs Period Temp Pulse Resp BP Sys/Kline Pulse Ox Last 24 Hr 97.6 F-98.4 F 84-105 17-20 113-127/59-66 Constitutional: Yes: Well Nourished, No Distress, Calm Eyes: Yes: Conjunctiva Clear, EOM Intact HENT: Yes: Atraumatic, Normocephalic Neck: Yes: Supple, Trachea Midline Cardiovascular: Yes: Regular Rate and Rhythm, S1, S2 Respiratory: Yes: Regular, CTA Bilaterally Gastrointestinal: Yes: Normal Bowel Sounds, Soft. No: Tenderness ...Rectal Exam: Yes: Deferred. No: Induration, Inflammation, Mass Genitourinary: No: CVA Tenderness - Left, CVA Tenderness - Right, Other Breast(s): No: Dimpling Musculoskeletal: No: Joint Swelling, Muscle Pain Extremities: No: Cool, Cyanosis Edema: No Peripheral Pulses WNL: Yes Integumentary: No: Incision, Jaundice Wound/Incision: Yes: Clean/Dry, Well Approximated, Dressing Dry and Intact Neurological: Yes: Alert, Oriented Psychiatric: Yes: Alert, Oriented Labs: CBC, BMP 11/29/18 07:41 11/29/18 07:41 INR, PTT INR 1.07 (0.83-1.09) 11/27/18 07:05 Microbiology 11/26/18 13:30 Arm - Left Forearm Gram Stain - Final 11/26/18 13:30 Arm - Left Forearm Wound Culture - Final NO GROWTH AFTER 48 HOURS INCUBATION 11/26/18 13:30 Finger - Left Small Finger Gram Stain - Final 11/26/18 13:30 Finger - Left Small Finger Wound Culture - Final NO GROWTH AFTER 48 HOURS INCUBATION 11/26/18 13:30 Hand - Left Gram Stain - Final 11/26/18 13:30 Hand - Left Wound Culture - Final NO GROWTH AFTER 48 HOURS INCUBATION 11/26/18 10:31 Blood - Peripheral Venous Blood Culture - Preliminary NO GROWTH OBTAINED AFTER 48 HOURS, INCUBATION TO CONTINUE FOR 3 DAYS. 11/26/18 10:42 Blood - Peripheral Venous Blood Culture - Preliminary NO GROWTH OBTAINED AFTER 48 HOURS, INCUBATION TO CONTINUE FOR 3 DAYS. Problem List - Problems (1) Suppurative tenosynovitis of flexor tendon of left hand Assessment/Plan: 77yo female MMP including DM with supperative flexor tenosynovitus of left hand POD#4 s/p I&D and CTR of left cultures did not yield and organism continued left arm elevation IV antibiotics per ID local wound care by RN She may keep her final dressing until follow up appointment continued oral antibiotics at the discretion of primary team and ID consider discharge home I will be away on 12/01 & 12/02 I am available by phone for questions, Dr. Roy will be available for emergencies. Code(s): M65.142 - OTHER INFECTIVE (TENO)SYNOVITIS, LEFT HAND (2) Diabetes Code(s): E11.9 - TYPE 2 DIABETES MELLITUS WITHOUT COMPLICATIONS Qualifiers: Diabetes mellitus type: type 2 (3) HLD (hyperlipidemia) Code(s): E78.5 - HYPERLIPIDEMIA, UNSPECIFIED Qualifiers: Hyperlipidemia type: pure hypercholesterolemia Qualified Code(s): E78.00 - Pure hypercholesterolemia, unspecified; E78.0 - Pure hypercholesterolemia (4) HTN (hypertension) Code(s): I10 - ESSENTIAL (PRIMARY) HYPERTENSION Qualifiers: Hypertension type: essential hypertension Qualified Code(s): I10 - Essential (primary) hypertension
[2018-11-29] MEDS: VANCOMYCIN 1 GRAM (PRE-DOCKED) 1,000 MG/250 ML BAG IVPB SCH (11:08)
[2018-11-29] MEDS ORDERED: INSULIN (NOVOLOG) ASPART 100 UNITS/ML 10ML VIAL ONE (11:25)
--- NOTE | 2018-11-29 13:49 | PN ---
Progress Note, Physician Chief Complaint: Acute Flexor Tensosynovitis Left Carpel Tunnel Release History of Present Illness: Previous notes and events reviewed awake and alert NAD no complaints of pain denies chest pain or SOB - Current Medication List Current Medications: Active Medications Atorvastatin Calcium (Lipitor -) 10 mg PO [facility] Last Admin: 11/28/18 21:33 Dose: 10 mg Piperacillin Sod/Tazobactam (Sod 3.375 gm/ Dextrose) 50 mls @ 100 mls/hr IVPB Q8H-[facility]; Protocol Last Admin: 11/29/18 09:42 Dose: 100 mls/hr Vancomycin HCl (Vancomycin (Pre-Docked)) 1,000 mg in 250 mls @ 166.667 mls/hr IVPB Q12H [facility]; Protocol Last Admin: 11/29/18 11:08 Dose: 166.667 mls/hr Insulin Aspart (Novolog Vial Sliding Scale -) 1 vial SQ ACHS [facility]; Protocol Last Admin: 11/29/18 11:26 Dose: 4 units Montelukast Sodium (Singulair -) 10 mg PO [facility] Last Admin: 11/28/18 21:33 Dose: 10 mg Ondansetron HCl (Zofran Injection) 4 mg IVPUSH Q6H PRN PRN Reason: NAUSEA AND/OR VOMITING Oxycodone HCl (Roxicodone -) 5 mg PO Q6H PRN PRN Reason: PAIN LEVEL 6-10 Last Admin: 11/27/18 13:07 Dose: 5 mg Sitagliptin Phosphate (Januvia -) 100 mg PO DAILY@0700 [facility] Last Admin: 11/29/18 06:07 Dose: 100 mg - Objective Vital Signs: Vital Signs Temperature 97.8 F 11/29/18 09:18 Pulse Rate 105 H 11/29/18 09:18 Respiratory Rate 17 11/29/18 09:18 Blood Pressure 117/65 11/29/18 09:18 O2 Sat by Pulse Oximetry (%) 98 11/27/18 10:00 Constitutional: Yes: No Distress, Calm Eyes: Yes: Conjunctiva Clear HENT: Yes: Atraumatic Cardiovascular: Yes: Regular Rate and Rhythm Respiratory: Yes: Regular, CTA Bilaterally Gastrointestinal: Yes: Normal Bowel Sounds, Soft Musculoskeletal: Yes: Muscle Weakness Extremities: Yes: WNL Edema: No Wound/Incision: Yes: Dressing Dry and Intact Neurological: Yes: Alert, Oriented Psychiatric: Yes: Alert, Oriented Labs: CBC, BMP 11/29/18 07:41 11/29/18 07:41 INR, PTT INR 1.07 (0.83-1.09) 11/27/18 07:05 Microbiology 11/26/18 10:31 Blood - Peripheral Venous Blood Culture - Preliminary NO GROWTH OBTAINED AFTER 72 HOURS, INCUBATION TO CONTINUE FOR 2 DAYS. 11/26/18 10:42 Blood - Peripheral Venous Blood Culture - Preliminary NO GROWTH OBTAINED AFTER 72 HOURS, INCUBATION TO CONTINUE FOR 2 DAYS. 11/26/18 13:30 Arm - Left Forearm Gram Stain - Final 11/26/18 13:30 Arm - Left Forearm Wound Culture - Final NO GROWTH AFTER 48 HOURS INCUBATION 11/26/18 13:30 Finger - Left Small Finger Gram Stain - Final 11/26/18 13:30 Finger - Left Small Finger Wound Culture - Final NO GROWTH AFTER 48 HOURS INCUBATION 11/26/18 13:30 Hand - Left Gram Stain - Final 11/26/18 13:30 Hand - Left Wound Culture - Final NO GROWTH AFTER 48 HOURS INCUBATION Problem List - Problems (1) Diabetes Assessment/Plan: -BGM ACHS -ISS -Sitagliptan -diabetic diet Code(s): E11.9 - TYPE 2 DIABETES MELLITUS WITHOUT COMPLICATIONS Qualifiers: Diabetes mellitus type: type 2 (2) HLD (hyperlipidemia) Assessment/Plan: -Atorvastatin Code(s): E78.5 - HYPERLIPIDEMIA, UNSPECIFIED Qualifiers: Hyperlipidemia type: pure hypercholesterolemia Qualified Code(s): E78.00 - Pure hypercholesterolemia, unspecified; E78.0 - Pure hypercholesterolemia (3) Left arm swelling Assessment/Plan: -Vancomycin and Zosyn -ID on board -no leukocytosis -afebrile -POD #3 Left carpel tunnel release Code(s): M79.89 - OTHER SPECIFIED SOFT TISSUE DISORDERS (4) Suppurative tenosynovitis of flexor tendon of left hand Assessment/Plan: -pain control -vancomycin and zosyn Code(s): M65.142 - OTHER INFECTIVE (TENO)SYNOVITIS, LEFT HAND Assessment/Plan see problem list dvt ppx D/C home when changed to PO ABT
--- NOTE | 2018-11-29 17:18 | PN ---
Progress Note, Physician History of Present Illness: OOB IN CHAIR NO C/O L UE PAIN REPORTS BETTER ROM NO F/C WBC WNL C/S NO GROWTH - Current Medication List Current Medications: Active Medications Atorvastatin Calcium (Lipitor -) 10 mg PO HS [facility] Last Admin: 11/28/18 21:33 Dose: 10 mg Piperacillin Sod/Tazobactam (Sod 3.375 gm/ Dextrose) 50 mls @ 100 mls/hr IVPB Q8H-IV [facility]; Protocol Last Admin: 11/29/18 09:42 Dose: 100 mls/hr Insulin Aspart (Novolog Vial Sliding Scale -) 1 vial SQ ACHS [facility]; Protocol Last Admin: 11/29/18 11:26 Dose: 4 units Montelukast Sodium (Singulair -) 10 mg PO HS [facility] Last Admin: 11/28/18 21:33 Dose: 10 mg Ondansetron HCl (Zofran Injection) 4 mg IVPUSH Q6H PRN PRN Reason: NAUSEA AND/OR VOMITING Sitagliptin Phosphate (Januvia -) 100 mg PO DAILY@0700 [facility] Last Admin: 11/29/18 06:07 Dose: 100 mg - Objective Vital Signs: Vital Signs Temperature 97.2 F L 11/29/18 14:07 Pulse Rate 83 11/29/18 14:07 Respiratory Rate 18 11/29/18 14:07 Blood Pressure 124/49 L 11/29/18 14:07 O2 Sat by Pulse Oximetry (%) 97 11/29/18 09:00 Constitutional: Yes: No Distress Cardiovascular: Yes: Regular Rate and Rhythm, S1, S2 Respiratory: Yes: CTA Bilaterally Gastrointestinal: Yes: Normal Bowel Sounds, Soft Extremities: Yes: Other (CONTINUED IMPROVEMENT L UE. HAND SWELLING NEARLY ALL RESOLVED. MINIMAL ERYTHEMA LIMITED TO HYPOTHENAR EMINENCE. SURGICAL WOUNDS HEALING WELL. NO DRAINAGE) Labs: CBC, BMP 11/29/18 07:41 11/29/18 07:41 INR, PTT INR 1.07 (0.83-1.09) 11/27/18 07:05 Assessment/Plan CELLULITIS/ AC FLEXOR TENOSYNOVITIS L FOREARM/ HAND IMPROVED S/P I&D S/P PUNCTURE WOUND DIABETES MELLITUS MARKED IMPROVEMENT CONTINUE ZOSYN SWITCH TO PO ANTIBIOTICS 24HR
[2018-11-29] MEDS: MONTELUKAST NA 10 MG TABLET PO SCH (22:08)
[2018-11-29] MEDS: ATORVASTATIN CA 10 MG TABLET (FP) PO SCH (22:08)
[2018-11-30] MEDS ORDERED: PIPERACILLIN/TAZOBACTAM 3.375 GM VIAL IVPB ONE ×2 (01:42→12:08)
[2018-11-30] MEDS ORDERED: DEXTROSE 5%-WATER - 50 ML IVPB ONE ×2 (01:43→12:09)
[2018-11-30] MEDS: PIPERACILLIN/TAZOB 3.375 GM 3.375 GM in DEXTROSE 5%-WATER - 50 ML IVPB SCH ×2 (01:48→12:15)
[2018-11-30] MEDS ORDERED: PT OWN MED DRAWER 7, Y5N ONE (06:02)
--- NOTE | 2018-11-30 06:12 | PN ---
Progress Note, Physician Chief Complaint: left hand infection History of Present Illness: 77 yo LHD female PMH diabetes (NIDDM), HTN, and HLD, who presents to the emergency department for evaluation of a left hand pain, swelling and redness. she has been stable post operatively. swelling and motion have both improved. - Current Medication List Current Medications: Active Medications Atorvastatin Calcium (Lipitor -) 10 mg PO HS [facility] Last Admin: 11/29/18 22:08 Dose: 10 mg Piperacillin Sod/Tazobactam (Sod 3.375 gm/ Dextrose) 50 mls @ 100 mls/hr IVPB Q8H-IV [facility]; Protocol Last Admin: 11/30/18 01:48 Dose: 100 mls/hr Insulin Aspart (Novolog Vial Sliding Scale -) 1 vial SQ ACHS [facility]; Protocol Last Admin: 11/29/18 22:11 Dose: Not Given Montelukast Sodium (Singulair -) 10 mg PO HS [facility] Last Admin: 11/29/18 22:08 Dose: 10 mg Ondansetron HCl (Zofran Injection) 4 mg IVPUSH Q6H PRN PRN Reason: NAUSEA AND/OR VOMITING Sitagliptin Phosphate (Januvia -) 100 mg PO DAILY@0700 [facility] Last Admin: 11/29/18 06:07 Dose: 100 mg - Objective Vital Signs: Vital Signs Temperature 98.0 F 11/30/18 02:00 Pulse Rate 82 11/30/18 02:00 Respiratory Rate 18 11/30/18 02:00 Blood Pressure 105/47 L 11/30/18 02:00 O2 Sat by Pulse Oximetry (%) 97 11/29/18 21:00 Vital Signs Period Temp Pulse Resp BP Sys/Kline Pulse Ox Last 24 Hr 97.2 F-98.7 F 82-105 17-20 105-135/47-66 97-97 Constitutional: Yes: Well Nourished, No Distress, Calm Eyes: Yes: Conjunctiva Clear, EOM Intact HENT: Yes: Atraumatic, Normocephalic Neck: Yes: Supple, Trachea Midline Cardiovascular: Yes: Regular Rate and Rhythm, S1, S2 Respiratory: Yes: Regular, CTA Bilaterally Gastrointestinal: Yes: Normal Bowel Sounds, Soft. No: Tenderness ...Rectal Exam: Yes: Deferred Genitourinary: No: CVA Tenderness - Left, CVA Tenderness - Right Breast(s): No: Mass, Skin Changes Musculoskeletal: No: Muscle Pain, Muscle Weakness Extremities: No: Cool, Cyanosis Edema: No Peripheral Pulses WNL: Yes Peripheral Pulses: Left Radial: 2+, Right Radial: 2+, Left Doralis Pedis: 2+, Right Dorsalis Pedis: 2+, Left Femoral: 2+, Right Femoral: 2+ Integumentary: No: Incision, Jaundice Wound/Incision: Yes: Clean/Dry, Well Approximated, Dressing Dry and Intact Neurological: Yes: Alert, Oriented Psychiatric: Yes: Alert, Oriented Labs: CBC, BMP 11/29/18 07:41 11/29/18 07:41 INR, PTT INR 1.07 (0.83-1.09) 11/27/18 07:05 Problem List - Problems (1) Suppurative tenosynovitis of flexor tendon of left hand Assessment/Plan: 77yo female MMP including DM with supperative flexor tenosynovitus of left hand POD#5 s/p I&D and CTR of left cultures did not yield and organism continued left arm elevation IV antibiotics per ID local wound care by RN She may keep her final dressing until follow up appointment continued oral antibiotics at the discretion of primary team and ID please discharge home I will be away on 12/01 & 12/02 I am available by phone for questions, Dr. Roy will be available for emergencies. Code(s): M65.142 - OTHER INFECTIVE (TENO)SYNOVITIS, LEFT HAND (2) Diabetes Code(s): E11.9 - TYPE 2 DIABETES MELLITUS WITHOUT COMPLICATIONS Qualifiers: Diabetes mellitus type: type 2 (3) HLD (hyperlipidemia) Code(s): E78.5 - HYPERLIPIDEMIA, UNSPECIFIED Qualifiers: Hyperlipidemia type: pure hypercholesterolemia Qualified Code(s): E78.00 - Pure hypercholesterolemia, unspecified; E78.0 - Pure hypercholesterolemia (4) HTN (hypertension) Code(s): I10 - ESSENTIAL (PRIMARY) HYPERTENSION Qualifiers: Hypertension type: essential hypertension Qualified Code(s): I10 - Essential (primary) hypertension
[2018-11-30] MEDS: sitaGLIPtin PHOSPHATE 100 MG TABLET (FP) PO SCH (06:32)
[2018-11-30] MEDS: INSULIN SLIDING SCALE (NOVOLOG) 1 VIAL SQ SCH ×2 (06:36→12:24)
[2018-11-30 08:14] LABS: HEMATOCRIT 37.3 % (32.4-45.2); HEMOGLOBIN 12.1 GM/dL (10.7-15.3); MCH 27.2 pg (25.7-33.7); MCHC 32.5 g/dl (32.0-36.0); MEAN CELL VOLUME 83.7 fl (80-96); MEAN PLT VOLUME 8.7 fl (7.5-11.1); PLATELET COUNT 209 K/MM3 (134-434); RBC 4.45 M/mm3 (3.60-5.2); RDW 14.8 % (11.6-15.6); WHITE BLOOD COUNT 6.7 K/mm3 (4.0-10.0)
[2018-11-30 08:48] LABS: ALBUMIN 3.1 g/dl (3.4-5.0); BILIRUBIN,TOTAL 1.6 mg/dL (0.2-1); BLOOD UREA NITROGEN 17.5 mg/dL (7-18); CALCIUM 9.2 mg/dL (8.5-10.1); CREATININE 1.2 mg/dL (0.55-1.3); POTASSIUM 4.3 mmol/L (3.5-5.1); TOT PROT 6.8 g/dl (6.4-8.2)
--- NOTE | 2018-11-30 13:16 | DS ---
Physical Examination Vital Signs: Vital Signs Temperature 97.4 F L 11/30/18 06:00 Pulse Rate 96 H 11/30/18 06:00 Respiratory Rate 18 11/30/18 06:00 Blood Pressure 128/60 11/30/18 06:00 O2 Sat by Pulse Oximetry (%) 97 11/29/18 21:00 Findings/Remarks: Patient is a 78 y/o female with pmhx of NIDDM, HTN, HLD. She presented to ER for evaluation of of left hand pain, swelling and redness. She says her grandson was playing with wood that had a nail in it that hit her left forearm. She says redness has increased up her forearm to the palm of her hand. Constitutional: Yes: No Distress, Calm Eyes: Yes: Conjunctiva Clear HENT: Yes: Atraumatic Cardiovascular: Yes: Regular Rate and Rhythm Respiratory: Yes: Regular, CTA Bilaterally Gastrointestinal: Yes: Normal Bowel Sounds, Soft Musculoskeletal: Yes: WNL Extremities: Yes: WNL Edema: No Wound/Incision: Yes: Dressing Dry and Intact Neurological: Yes: Alert, Oriented Psychiatric: Yes: Alert, Oriented Labs: CBC, BMP 11/30/18 07:50 11/30/18 07:50 Discharge Summary Reason For Visit: FLEXOR CARPI RADIALIS TENOSYNOVITIS Current Active Problems Diabetes (Acute) HLD (hyperlipidemia) (Acute) HTN (hypertension) (Acute) Left arm swelling (Acute) Suppurative tenosynovitis of flexor tendon of left hand (Acute) Hospital Course: see progress notes Laboratory Tests 11/26/18 11/26/18 11/26/18 10:38 10:38 10:38 WBC 13.0 H RBC 4.40 Hgb 12.0 Hct 37.1 MCV 84.4 MCH 27.3 MCHC 32.4 RDW 15.2 Plt Count 212 MPV 9.1 Absolute Neuts (auto) 10.7 H Neutrophils % 82.4 Lymphocytes % 10.1 Monocytes % 6.5 Eosinophils % 0.6 Basophils % 0.4 Nucleated RBC % 0 PT with INR 12.40 INR 1.05 PTT (Actin FS) 31.0 Sodium Potassium Chloride Carbon Dioxide Anion Gap BUN Creatinine Est GFR (CKD-EPI)AfAm Est GFR (CKD-EPI)NonAf POC Glucometer Random Glucose Hemoglobin A1c % Calcium Phosphorus Magnesium Total Bilirubin AST ALT Alkaline Phosphatase Total Protein Albumin Triglycerides Cholesterol Total LDL Cholesterol HDL Cholesterol Vancomycin Pre-Dose Blood Type Cancelled Antibody Screen Cancelled 11/26/18 11/26/18 11/26/18 10:42 11:43 11:43 WBC RBC Hgb Hct MCV MCH MCHC RDW Plt Count MPV Absolute Neuts (auto) Neutrophils % Lymphocytes % Monocytes % Eosinophils % Basophils % Nucleated RBC % PT with INR INR PTT (Actin FS) Sodium Cancelled 139 Potassium Cancelled 4.2 Chloride Cancelled 108 H Carbon Dioxide Cancelled 26 Anion Gap Cancelled 5 L BUN Cancelled 20.5 H Creatinine Cancelled 0.8 Est GFR (CKD-EPI)AfAm Cancelled 82.42 Est GFR (CKD-EPI)NonAf Cancelled 71.11 POC Glucometer Random Glucose Cancelled 172 H Hemoglobin A1c % Calcium Cancelled 9.1 Phosphorus Magnesium Total Bilirubin Cancelled 0.9 AST Cancelled 18 ALT Cancelled 24 Alkaline Phosphatase Cancelled 122 H Total Protein Cancelled 6.8 Albumin Cancelled 3.6 Triglycerides Cholesterol Total LDL Cholesterol HDL Cholesterol Vancomycin Pre-Dose Blood Type A POSITIVE Antibody Screen Negative 11/26/18 11/26/18 11/27/18 17:25 21:37 06:18 WBC RBC Hgb Hct MCV MCH MCHC RDW Plt Count MPV Absolute Neuts (auto) Neutrophils % Lymphocytes % Monocytes % Eosinophils % Basophils % Nucleated RBC % PT with INR INR PTT (Actin FS) Sodium Potassium Chloride Carbon Dioxide Anion Gap BUN Creatinine Est GFR (CKD-EPI)AfAm Est GFR (CKD-EPI)NonAf POC Glucometer 87 86 86 Random Glucose Hemoglobin A1c % Calcium Phosphorus Magnesium Total Bilirubin AST ALT Alkaline Phosphatase Total Protein Albumin Triglycerides Cholesterol Total LDL Cholesterol HDL Cholesterol Vancomycin Pre-Dose Blood Type Antibody Screen 11/27/18 11/27/18 11/27/18 07:05 07:05 07:05 WBC 8.6 RBC 4.29 Hgb 11.8 Hct 36.1 MCV 84.1 MCH 27.4 MCHC 32.5 RDW 14.9 Plt Count 184 MPV 8.9 Absolute Neuts (auto) Neutrophils % Lymphocytes % Monocytes % Eosinophils % Basophils % Nucleated RBC % PT with INR INR PTT (Actin FS) Sodium 142 Potassium 4.1 Chloride 109 H Carbon Dioxide 26 Anion Gap 7 L BUN 17.2 Creatinine 0.9 Est GFR (CKD-EPI)AfAm 71.48 Est GFR (CKD-EPI)NonAf 61.67 POC Glucometer Random Glucose 95 Hemoglobin A1c % 7.2 H Calcium 8.7 Phosphorus 2.9 Magnesium 2.2 Total Bilirubin 1.1 H AST 17 ALT 19 Alkaline Phosphatase 111 Total Protein 6.3 L Albumin 3.1 L Triglycerides 104 Cholesterol 135 Total LDL Cholesterol 67 HDL Cholesterol 54 Vancomycin Pre-Dose Blood Type Antibody Screen 11/27/18 11/27/18 11/27/18 07:05 11:28 17:21 WBC RBC Hgb Hct MCV MCH MCHC RDW Plt Count MPV Absolute Neuts (auto) Neutrophils % Lymphocytes % Monocytes % Eosinophils % Basophils % Nucleated RBC % PT with INR 12.60 INR 1.07 PTT (Actin FS) Sodium Potassium Chloride Carbon Dioxide Anion Gap BUN Creatinine Est GFR (CKD-EPI)AfAm Est GFR (CKD-EPI)NonAf POC Glucometer 187 169 Random Glucose Hemoglobin A1c % Calcium Phosphorus Magnesium Total Bilirubin AST ALT Alkaline Phosphatase Total Protein Albumin Triglycerides Cholesterol Total LDL Cholesterol HDL Cholesterol Vancomycin Pre-Dose Blood Type Antibody Screen 11/27/18 11/28/18 11/28/18 21:37 05:34 11:14 WBC RBC Hgb Hct MCV MCH MCHC RDW Plt Count MPV Absolute Neuts (auto) Neutrophils % Lymphocytes % Monocytes % Eosinophils % Basophils % Nucleated RBC % PT with INR INR PTT (Actin FS) Sodium Potassium Chloride Carbon Dioxide Anion Gap BUN Creatinine Est GFR (CKD-EPI)AfAm Est GFR (CKD-EPI)NonAf POC Glucometer 198 119 193 Random Glucose Hemoglobin A1c % Calcium Phosphorus Magnesium Total Bilirubin AST ALT Alkaline Phosphatase Total Protein Albumin Triglycerides Cholesterol Total LDL Cholesterol HDL Cholesterol Vancomycin Pre-Dose Blood Type Antibody Screen 11/28/18 11/28/18 11/29/18 18:09 21:35 06:06 WBC RBC Hgb Hct MCV MCH MCHC RDW Plt Count MPV Absolute Neuts (auto) Neutrophils % Lymphocytes % Monocytes % Eosinophils % Basophils % Nucleated RBC % PT with INR INR PTT (Actin FS) Sodium Potassium Chloride Carbon Dioxide Anion Gap BUN Creatinine Est GFR (CKD-EPI)AfAm Est GFR (CKD-EPI)NonAf POC Glucometer 167 136 137 Random Glucose Hemoglobin A1c % Calcium Phosphorus Magnesium Total Bilirubin AST ALT Alkaline Phosphatase Total Protein Albumin Triglycerides Cholesterol Total LDL Cholesterol HDL Cholesterol Vancomycin Pre-Dose Blood Type Antibody Screen 11/29/18 11/29/18 11/29/18 07:41 07:41 09:05 WBC 6.7 RBC 4.49 Hgb 12.4 Hct 37.8 MCV 84.2 MCH 27.6 MCHC 32.8 RDW 14.5 Plt Count 239 D MPV 9.1 Absolute Neuts (auto) Neutrophils % Lymphocytes % Monocytes % Eosinophils % Basophils % Nucleated RBC % PT with INR INR PTT (Actin FS) Sodium 139 Potassium 4.2 Chloride 105 Carbon Dioxide 26 Anion Gap 9 BUN 12.3 Creatinine 1.0 Est GFR (CKD-EPI)AfAm 62.49 Est GFR (CKD-EPI)NonAf 53.92 POC Glucometer Random Glucose 145 H Hemoglobin A1c % Calcium 9.1 Phosphorus Magnesium Total Bilirubin 1.4 H AST 89 H ALT 69 H Alkaline Phosphatase 249 H Total Protein 6.7 Albumin 3.1 L Triglycerides Cholesterol Total LDL Cholesterol HDL Cholesterol Vancomycin Pre-Dose 22.2 Blood Type Antibody Screen 11/29/18 11/29/18 11/29/18 11:22 17:44 22:10 WBC RBC Hgb Hct MCV MCH MCHC RDW Plt Count MPV Absolute Neuts (auto) Neutrophils % Lymphocytes % Monocytes % Eosinophils % Basophils % Nucleated RBC % PT with INR INR PTT (Actin FS) Sodium Potassium Chloride Carbon Dioxide Anion Gap BUN Creatinine Est GFR (CKD-EPI)AfAm Est GFR (CKD-EPI)NonAf POC Glucometer 289 156 169 Random Glucose Hemoglobin A1c % Calcium Phosphorus Magnesium Total Bilirubin AST ALT Alkaline Phosphatase Total Protein Albumin Triglycerides Cholesterol Total LDL Cholesterol HDL Cholesterol Vancomycin Pre-Dose Blood Type Antibody Screen 11/30/18 11/30/18 11/30/18 06:32 07:50 07:50 WBC 6.7 RBC 4.45 Hgb 12.1 Hct 37.3 MCV 83.7 MCH 27.2 MCHC 32.5 RDW 14.8 Plt Count 209 MPV 8.7 Absolute Neuts (auto) Neutrophils % Lymphocytes % Monocytes % Eosinophils % Basophils % Nucleated RBC % PT with INR INR PTT (Actin FS) Sodium 137 Potassium 4.3 Chloride 104 Carbon Dioxide 26 Anion Gap 7 L BUN 17.5 Creatinine 1.2 Est GFR (CKD-EPI)AfAm 50.13 Est GFR (CKD-EPI)NonAf 43.25 POC Glucometer 190 Random Glucose 171 H Hemoglobin A1c % Calcium 9.2 Phosphorus Magnesium Total Bilirubin 1.6 H AST 183 H ALT 140 H Alkaline Phosphatase 455 H Total Protein 6.8 Albumin 3.1 L Triglycerides Cholesterol Total LDL Cholesterol HDL Cholesterol Vancomycin Pre-Dose Blood Type Antibody Screen 11/30/18 12:22 WBC RBC Hgb Hct MCV MCH MCHC RDW Plt Count MPV Absolute Neuts (auto) Neutrophils % Lymphocytes % Monocytes % Eosinophils % Basophils % Nucleated RBC % PT with INR INR PTT (Actin FS) Sodium Potassium Chloride Carbon Dioxide Anion Gap BUN Creatinine Est GFR (CKD-EPI)AfAm Est GFR (CKD-EPI)NonAf POC Glucometer 174 Random Glucose Hemoglobin A1c % Calcium Phosphorus Magnesium Total Bilirubin AST ALT Alkaline Phosphatase Total Protein Albumin Triglycerides Cholesterol Total LDL Cholesterol HDL Cholesterol Vancomycin Pre-Dose Blood Type Antibody Screen Active Medications Generic Name Dose Route Start Last Admin Trade Name Freq PRN Reason Stop Dose Admin Amoxicillin/Clavulanate Potassium 1 tab 11/30/18 17:30 Augmentin - 875mg Tablet PO 12/10/18 17:29 BID@0800,1730 [facility] Atorvastatin Calcium 10 mg 11/26/18 22:00 11/29/18 22:08 Lipitor - PO 10 mg HS [facility] Administration Insulin Aspart 1 vial 11/26/18 16:30 11/30/18 12:24 Novolog Vial Sliding Scale - SQ Not Given ACHS [facility] Protocol Montelukast Sodium 10 mg 11/27/18 22:00 11/29/18 22:08 Singulair - PO 10 mg HS [facility] Administration Ondansetron HCl 4 mg 11/26/18 15:23 Zofran Injection IVPUSH Q6H PRN NAUSEA AND/OR VOMITING Sitagliptin Phosphate 100 mg 11/28/18 07:00 11/30/18 06:32 Januvia - PO 100 mg DAILY@0700 [facility] Administration Microbiology 11/26/18 10:31 Blood - Peripheral Venous Blood Culture - Preliminary NO GROWTH OBTAINED AFTER 96 HOURS, INCUBATION TO CONTINUE FOR 1 DAYS. 11/26/18 10:42 Blood - Peripheral Venous Blood Culture - Preliminary NO GROWTH OBTAINED AFTER 96 HOURS, INCUBATION TO CONTINUE FOR 1 DAYS. 11/26/18 13:30 Arm - Left Forearm Gram Stain - Final 11/26/18 13:30 Arm - Left Forearm Wound Culture - Final NO GROWTH AFTER 48 HOURS INCUBATION 11/26/18 13:30 Finger - Left Small Finger Gram Stain - Final 11/26/18 13:30 Finger - Left Small Finger Wound Culture - Final NO GROWTH AFTER 48 HOURS INCUBATION 11/26/18 13:30 Hand - Left Gram Stain - Final 11/26/18 13:30 Hand - Left Wound Culture - Final NO GROWTH AFTER 48 HOURS INCUBATION Condition: Improved - Instructions Diet, Activity, Other Instructions: Postoperative instructions: You had a Left CTR and I&D of flexortenosynovitis on 11/26/[address] Piotr Hooker of [facility]. Activity: Resume your usual activities gradually, but no heavy exertion or lifting more than 10-15 pounds for 4-6 weeks. Please keep dressing clean and Dry until follow up appointment. Eat lightly at first, but advance to your usual diet as tolerated. Pain: For pain, you may use and alternate Tylenol (acetaminophen) 1-2 pills and/ or ibuprofen 200 mg (1-3 pills) every 6 hours each as needed; this means that you can take one OR the other at 3-hour intervals. If you are prescribed a Tylenol/narcotic combination for severe pain, use it instead of plain Tylenol as needed and switch back when your pain starts decreasing. Do not take more than 4000 mg of acetaminophen in a day. Take medications as prescribed or indicated on the labeling. Follow-up: Call Dr. Hooker' office at [phone] make your postop appointment ( Friday in approximately 1 week after surgery as advised). Clinic is held in the Wound [facility] on the fifth floor of [facility]. Call the office if you have: * increasing pain not responsive to pain medication * fever of 101F or higher * vomiting * unusual or increasing bleeding or drainage from wounds * increasing redness or swelling at wound sites Also, see your primary medical doctor within 1-2 weeks. Return to ER if develop severe pain, respiratory distress, chest pain continue with antibiotic therapy as prescribed Referrals: Piotr Hooker MD [Staff Physician] - Gavin Valencia MD, MD [Primary Care Provider] - Disposition: HOME - Home Medications Comprehensive Discharge Medication List: Ambulatory Orders Cetirizine HCl 10 mg PO DAILY 08/11/16 Glipizide [Glipizide ER] 2.5 mg PO DAILY 08/11/16 Lisinopril 10 mg PO DAILY 08/11/16 Simvastatin 20 mg PO DAILY 08/11/16 Aspirin 81 mg PO DAILY 11/26/18 Montelukast Sodium [Singulair] 10 mg PO DAILY 11/26/18 Sitagliptin Phosphate [Januvia] 100 mg PO DAILY 11/26/18 Amox-Tr/K Cl [Augmentin 875-125mg Tablet -] 1 tab PO BID@0800,1730 10 Days #20 tablet 11/30/18 Montelukast Na [Singulair -] 10 mg PO HS tablet 11/30/18 Sitagliptin Phosphate [Januvia -] 100 mg PO DAILY@0700 ud 11/30/18
[2018-11-30 13:44] VITALS: BP 131/72; PULSE 80; TEMP 98.4
[2018-11-30] MEDS ORDERED: AMOX TR/POT CLAV 875MG/125MG TABLETS (FP) PO SCH (17:30)
== END 2018-11-30 14:11 | disposition home or self-care (01) | DRG 501 ==
LOC: JER 09:11 → JERBED 11:46 → J5S 16:21
PROVIDERS: ADMIT Student in an Organized Health Care Education/Training Program; ATTEND Student in an Organized Health Care Education/Training Program
PROC: 01N50ZZ Release Median Nerve, Open Approach (ICD-10-PCS; 2018-11-26)
PROC: 0J9H0ZZ Drainage of Left Lower Arm Subcutaneous Tissue and Fascia, Open Approach (ICD-10-PCS; principal; 2018-11-26 12:00)
DX: M65.142 Other infective (teno)synovitis, left hand (principal); L03.114 Cellulitis of left upper limb; E11.9 Type 2 diabetes mellitus without complications; I10 Essential (primary) hypertension; E78.5 Hyperlipidemia, unspecified; S63.8X2A Sprain of other part of left wrist and hand, initial encounter; W22.8XXA Striking against or struck by other objects, initial encounter; Y92.018 Other place in single-family (private) house as the place of occurrence of the external cause; Y99.8 Other external cause status
CPT/HCPCS: 36415; 73090-TC-LT-FY; 73130-TC-LT-FY; 80053; 80061; 82962; 83036; 83721; 83735; 84100; 85025; 85027; 85610; 85730; 86850; 86900; 86901; 87040; 87070; 87205; 90715; 93005; 93010; 94010; 94760; 97116-GP; 97161-GP; 99283-25; G0480; J0131

== ENCOUNTER 2020-09-05 09:53 | Emergency (ER) | payer OTHER, BC ==
[2020-09-05 10:15] VITALS: TEMP 97.7; BMI 28.3
[2020-09-05] MEDS ORDERED: morphine CARPU-JECT 4 MG/1 ML DISP.SYRIN IVPUSH ONE (11:25)
[2020-09-05] MEDS ORDERED: morphine SULFATE 4 MG/ML VIAL ONE (11:29)
[2020-09-05] MEDS ORDERED: ACETAMINOPHEN 1000 MG/100 ML VIAL (NON FORMULARY) IVPB ONE (12:41)
[2020-09-05] MEDS ORDERED: ACETAMINOPHEN INJECTION 100 ML IVPB ONE (14:10)
[2020-09-05 16:02] VITALS: BP 116/70; PULSE 85
== END 2020-09-05 16:05 | disposition home or self-care (01) ==
LOC: JER 09:53
PROC: 3E033GC Introduction of Other Therapeutic Substance into Peripheral Vein, Percutaneous Approach (ICD-10-PCS; principal; 2020-09-05)
DX: S42.292A Other displaced fracture of upper end of left humerus, initial encounter for closed fracture (principal); W01.0XXA Fall on same level from slipping, tripping and stumbling without subsequent striking against object, initial encounter
CPT/HCPCS: 70450-TC; 70486-TC; 71046-TC-FY; 71101-TC-LT-FY; 73030-TC-LT-FY; 99285-25; J0131

== ENCOUNTER 2021-05-06 11:46 | Emergency (ER) | payer OTHER, BC ==
[2021-05-06 11:54] VITALS: BP 126/56; PULSE 80; TEMP 98; BMI 26.7
== END 2021-05-06 13:18 | disposition home or self-care (01) ==
LOC: JER 11:46
DX: S30.0XXA Contusion of lower back and pelvis, initial encounter (principal); W19.XXXA Unspecified fall, initial encounter; Y92.9 Unspecified place or not applicable
CPT/HCPCS: 72170-TC-FY; 72220-TC-FY; 99284-25

== ENCOUNTER 2021-06-08 11:32 | Emergency (ER) | payer OTHER, BC ==
[2021-06-08 11:45] VITALS: BP 128/74; PULSE 93; TEMP 97.9; BMI 26.7
== END 2021-06-08 15:43 | disposition home or self-care (01) ==
LOC: JER 11:32
DX: M54.50 Low back pain, unspecified (principal); M79.605 Pain in left leg
CPT/HCPCS: 99283-25

== ENCOUNTER 2022-02-15 07:25 | Emergency (ER) | payer OTHER, BC ==
[2022-02-15 07:56] VITALS: BMI 28.3
[2022-02-15 08:29] LABS: BASO % 1.2 % (0-2.0); EOS % 0.7 % (0-4.5); HEMATOCRIT 36.2 % (32.4-45.2); HEMOGLOBIN 11.8 GM/dL (10.7-15.3); LYMPH % 11.9 % (8-40); MCH 27.7 pg (25.7-33.7); MCHC 32.8 g/dl (32.0-36.0); MEAN CELL VOLUME 84.5 fl (80-96); MEAN PLT VOLUME 8.9 fl (7.5-11.1); MONO % 5.4 % (3.8-10.2); NEUT % 80.8 % (42.8-82.8); PLATELET COUNT 190 10^3/uL (134-434); RBC 4.28 M/mm3 (3.60-5.2); RDW 15.3 % (11.6-15.6); VENOUS BASE EXCESS 0.1 mmol/L (-2-2); VENOUS O2 SATURATION 44.4 % (70-80); VENOUS PCO2 42.9 mmHg (38-52); VENOUS PH 7.388 (7.310-7.410); WHITE BLOOD COUNT 7.3 K/mm3 (4.0-10.0)
[2022-02-15 08:50] LABS: ALBUMIN 3.4 g/dl (3.4-5.0); BLOOD UREA NITROGEN 27.9 mg/dL (7-18); CALCIUM 8.8 mg/dL (8.5-10.1); MAGNESIUM 1.9 mg/dL (1.8-2.4)
[2022-02-15 08:53] LABS: CREATININE 1.1 mg/dL (0.55-1.3); PHOSPHOROUS 3.3 mg/dL (2.5-4.9)
[2022-02-15 08:55] LABS: TOT PROT 6.5 g/dl (6.4-8.2)
[2022-02-15 08:58] LABS: N-TERMINAL BNP 2963.8 pg/ml (5-450)
[2022-02-15 09:44] LABS: EPI CELLS 9 /uL (0-25.1); HYALINE CASTS 1 /uL (0-3.1); PH,URINE 5.5 (5.0-8.0); URINE APPEARANCE CLEAR; URINE BACTERIA >9,000 /uL (0-1359); URINE BILIRUBIN NEGATIVE (NEGATIVE); URINE COLOR YELLOW; URINE GLUCOSE (UA) NEGATIVE (NEGATIVE); URINE KETONE TRACE (NEGATIVE); URINE LEUK ESTERASE TRACE (NEGATIVE); URINE NITRITE POSITIVE (NEGATIVE); URINE PROTEIN 2+ (NEGATIVE); URINE RBC 4 /uL (0-23.9); URINE UROBILINOGEN 0.2 mg/dL (0.2-1.0); URINE WBC 18 /uL (0-25.8)
[2022-02-15 09:50] LABS: INR 1.16 (0.83-1.09); PROTHROMBIN TIME (PATIENT) 13.4 SEC (9.7-13.0)
[2022-02-15 09:52] LABS: ACTIVATED PTT 28.5 SECONDS (25.2-36.5)
[2022-02-15 09:57] LABS: MAGNESIUM 1.9 mg/dL (1.8-2.4)
[2022-02-15] MEDS ORDERED: CEFTRIAXONE 1,000 MG in DEXTROSE 5%-WATER - 50 ML IVPB ONE (10:25)
[2022-02-15] MEDS ORDERED: CEFTRIAXONE 1 GM/50 ML BAG ONE (11:15)
[2022-02-15 14:45] VITALS: BP 206/55; PULSE 45; RESP 22; TEMP 97.9
== END 2022-02-15 12:00 | disposition short-term general hospital (02) ==
LOC: JER 07:25
PROC: 3E033GC Introduction of Other Therapeutic Substance into Peripheral Vein, Percutaneous Approach (ICD-10-PCS; principal; 2022-02-15)
DX: I44.2 Atrioventricular block, complete (principal); I50.9 Heart failure, unspecified
CPT/HCPCS: 36415; 71045-TC-FY; 80053; 81003; 82550; 82803; 83735; 83880; 84100; 84132; 84439; 84443; 84484; 85025; 85610; 85730; 87086; 87186; 93005; 93010; 93306-TC; 99285-25; C9803-CS; U0003; U0005

== ENCOUNTER 2022-05-20 20:42 | Inpatient (IN) | payer OTHER, BC ==
[2022-05-20 21:13] LABS: BASO % 0.5 % (0-2.0); EOS % 0.4 % (0-4.5); HEMATOCRIT 42.1 % (32.4-45.2); HEMOGLOBIN 13.6 GM/dL (10.7-15.3); LYMPH % 15.2 % (8-40); MCH 27.2 pg (25.7-33.7); MCHC 32.4 g/dl (32.0-36.0); MEAN PLT VOLUME 8.8 fl (7.5-11.1); MONO % 6.5 % (3.8-10.2); NEUT % 77.4 % (42.8-82.8); PLATELET COUNT 229 10^3/uL (134-434); RBC 5.01 M/mm3 (3.60-5.2); RDW 16.2 % (11.6-15.6); WHITE BLOOD COUNT 11.2 K/mm3 (4.0-10.0)
[2022-05-20 21:23] LABS: INR 1.11 (0.83-1.09); PROTHROMBIN TIME (PATIENT) 12.8 SEC (9.7-13.0)
[2022-05-20 21:26] LABS: ACTIVATED PTT 24.3 SECONDS (25.2-36.5)
[2022-05-20 21:40] LABS: CHLORIDE 101 mmol/L (98-107); SODIUM 136 mmol/L (136-145)
[2022-05-20] MEDS ORDERED: PIPERACILLIN/TAZOB 4.5 GM 4.5 GM in DEXTROSE 5%-WATER 100 ML IVPB ONE (21:41)
[2022-05-20] MEDS ORDERED: VANCOMYCIN 1 GM in D5W (PRE-DOCKED) 1,000 MG/250 ML IVPB ONE (21:41)
[2022-05-20 21:43] LABS: CALCIUM 8.9 mg/dL (8.5-10.1)
[2022-05-20 21:44] LABS: BLOOD UREA NITROGEN 22.9 mg/dL (7-18); CO2 21 mmol/L (21-32); GLUCOSE,RANDOM 152 mg/dL (74-106); MAGNESIUM 1.9 mg/dL (1.8-2.4)
[2022-05-20 21:47] LABS: CREATININE 1.1 mg/dL (0.55-1.3); SGOT/AST 83 U/L (15-37); SGPT/ALT 31 U/L (13-61)
[2022-05-20 21:49] LABS: ALK PHOS 201 U/L (45-117); BILIRUBIN,TOTAL 0.9 mg/dL (0.2-1); TOT PROT 7.3 g/dl (6.4-8.2)
[2022-05-20] MEDS ORDERED: PIPERACILLIN/TAZOB 4.5 GM 4.5 GM/100 ML BAG IVPB ONE (21:50)
[2022-05-20] MEDS ORDERED: PROPOFOL 1,000,000 MCG/100 ML VIAL ONE (21:57)
[2022-05-20] MEDS ORDERED: PROPOFOL 1,000,000 MCG/100 ML VIAL IVPB SCH (22:00)
[2022-05-20 22:05] LABS: LACTIC ACID 3.9 mmol/L (0.4-2.0)
[2022-05-20 22:23] LABS: N-TERMINAL BNP 2448.6 pg/ml (5-450)
[2022-05-20 22:29] LABS: ANION GAP 13 MMOL/L (8-16)
[2022-05-20] MEDS ORDERED: VANCOMYCIN/WATER FOR INJ (PEG) 1,000 MG/200 ML BAG IVPB ONE (22:30)
[2022-05-20 22:41] LABS: ARTERIAL BLD GAS O2 SATURATION 99.7 % (95-98); ARTERIAL BLOOD GAS PO2 281.2 mmHg (80-100); ARTERIAL BLOOD GAS pH 7.454 (7.350-7.450)
[2022-05-20 22:42] LABS: ALLENS TEST POSITIVE
[2022-05-20 22:43] LABS: VENT MODE A/C; VENT RATE 18
[2022-05-20] MEDS ORDERED: LACTATED RINGERS SOLUTION 1,000 ML/1,000 ML INFUS.BAG IV SCH ×2 (23:15→23:16)
[2022-05-20] MEDS ORDERED: fentaNYL CITRATE 250 MCG/5 ML VIAL ONE (23:22)
[2022-05-20] MEDS: FENTANYL NS IVPB 500 MCG/100 ML BAG IVPB SCH (23:30)
[2022-05-21] MEDS ORDERED: MIDAZOLAM HCL 5 MG/1 ML Single Dose Vial IVPUSH ONE (00:37)
[2022-05-21] MEDS ORDERED: MIDAZOLAM IN 0.9 % SOD.CHLORID 1 MG/1 ML PLAST..BAG ONE (00:38)
[2022-05-21] MEDS: FAMOTIDINE 20 MG/50 ML IVPB 20 MG/50 ML MG IVPB SCH ×2 (01:18→21:14)
[2022-05-21] MEDS ORDERED: FAMOTIDINE 20 MG/50 ML IVPB 20 MG/50 ML MG IVPB ONE (01:20)
[2022-05-21] MEDS ORDERED: MIDAZOLAM IN 0.9 % SOD.CHLORID 100 MG/100 ML PLAST..BAG IVPB SCH (06:15)
[2022-05-21] MEDS ORDERED: PIPERACILLIN/TAZOB 4.5 GM 4.5 GM in DEXTROSE 5%-WATER 100 ML IVPB ONE (06:30)
[2022-05-21] MEDS ORDERED: PIPERACILLIN/TAZOB 4.5 GM 4.5 GM/100 ML BAG IVPB ONE (06:34)
[2022-05-21] MEDS ORDERED: fentaNYL CITRATE 250 MCG/5 ML VIAL ONE (06:38)
[2022-05-21 07:07] LABS: EPI CELLS >36 /uL (0-25.1); HYALINE CASTS 2 /uL (0-3.1); PH,URINE 5.5 (5.0-8.0); URINE APPEARANCE CLEAR; URINE BACTERIA 24 /uL (0-1359); URINE BILIRUBIN NEGATIVE (NEGATIVE); URINE COLOR YELLOW; URINE GLUCOSE (UA) NEGATIVE (NEGATIVE); URINE KETONE TRACE (NEGATIVE); URINE LEUK ESTERASE NEGATIVE (NEGATIVE); URINE NITRITE NEGATIVE (NEGATIVE); URINE PROTEIN 3+ (NEGATIVE); URINE RBC 12 /uL (0-23.9)
[2022-05-21 07:30] LABS: HEMATOCRIT 36.7 % (32.4-45.2); HEMOGLOBIN 11.8 GM/dL (10.7-15.3); MCHC 32.1 g/dl (32.0-36.0); MEAN PLT VOLUME 8.6 fl (7.5-11.1); PLATELET COUNT 189 10^3/uL (134-434); RBC 4.37 M/mm3 (3.60-5.2); WHITE BLOOD COUNT 11.7 K/mm3 (4.0-10.0)
[2022-05-21] MEDS ORDERED: NOREPINEPHRINE BITARTRATE/D5W 8 MG/250 ML BAG IVPB ONE (07:34)
[2022-05-21 07:35] LABS: INR 1.15 (0.83-1.09); PROTHROMBIN TIME (PATIENT) 13.2 SEC (9.7-13.0)
[2022-05-21 07:38] LABS: ACTIVATED PTT 23.1 SECONDS (25.2-36.5)
[2022-05-21] MEDS ORDERED: LACTATED RINGERS SOLUTION 1000 ML INFUS.BAG IV ONE (07:40)
[2022-05-21 07:45] LABS: CHLORIDE 104 mmol/L (98-107); SODIUM 139 mmol/L (136-145)
[2022-05-21] MEDS ORDERED: NOREPINEPHRINE BITARTRATE 4,000 MCG in DEXTROSE 5%-WATER - 496 ML IV SCH (07:45)
[2022-05-21 07:48] LABS: CALCIUM 8.2 mg/dL (8.5-10.1)
[2022-05-21] MEDS: LACTATED RINGERS SOLUTION 1,000 ML/1,000 ML INFUS.BAG IV SCH (07:48)
[2022-05-21 07:49] LABS: ALBUMIN 2.6 g/dl (3.4-5.0); ANION GAP 14 MMOL/L (8-16); BLOOD UREA NITROGEN 26.7 mg/dL (7-18); CO2 22 mmol/L (21-32); GLUCOSE,RANDOM 229 mg/dL (74-106); MAGNESIUM 1.8 mg/dL (1.8-2.4)
[2022-05-21] MEDS: DEXTROSE 5%-NORMAL SALINE 1,000 ML IV SCH (07:49)
[2022-05-21 07:52] LABS: PHOSPHOROUS 3.2 mg/dL (2.5-4.9); SGOT/AST 29 U/L (15-37); SGPT/ALT 22 U/L (13-61)
[2022-05-21 07:53] LABS: CREATININE 0.9 mg/dL (0.55-1.3)
[2022-05-21 07:54] LABS: BILIRUBIN,TOTAL 0.8 mg/dL (0.2-1)
[2022-05-21 07:56] LABS: TOT PROT 5.6 g/dl (6.4-8.2)
[2022-05-21 07:59] LABS: ALK PHOS 146 U/L (45-117)
[2022-05-21] MEDS ORDERED: ROCURONIUM BROMIDE 50 MG/5 ML SYRINGE ONE (08:01)
[2022-05-21] MEDS: NOREPINEPHRINE BITARTRATE/D5W 8 MG/250 ML BAG IVPB SCH (09:10)
[2022-05-21] MEDS: INSULIN SLIDING SCALE (NOVOLOG) 1 VIAL SQ SCH ×5 (09:11→23:18)
[2022-05-21] MEDS: PROPOFOL 1,000,000 MCG/100 ML VIAL IVPB SCH (09:12)
[2022-05-21] MEDS ORDERED: INSULIN REGULAR HUMAN 100 UNITS/ML *VIAL ONE (09:15)
[2022-05-21 09:56] LABS: BASO % 0.3 % (0-2.0); HEMATOCRIT 34.4 % (32.4-45.2); HEMOGLOBIN 11.2 GM/dL (10.7-15.3); LYMPH % 6.5 % (8-40); MCH 26.9 pg (25.7-33.7); MCHC 32.4 g/dl (32.0-36.0); MEAN CELL VOLUME 82.8 fl (80-96); MEAN PLT VOLUME 8.3 fl (7.5-11.1); MONO % 7.9 % (3.8-10.2); NEUT % 85.3 % (42.8-82.8); PLATELET COUNT 187 10^3/uL (134-434); RBC 4.15 M/mm3 (3.60-5.2); WHITE BLOOD COUNT 11.3 K/mm3 (4.0-10.0)
[2022-05-21 10:13] LABS: CHLORIDE 106 mmol/L (98-107); SODIUM 139 mmol/L (136-145)
[2022-05-21 10:16] LABS: ALBUMIN 2.4 g/dl (3.4-5.0); CALCIUM 7.7 mg/dL (8.5-10.1)
[2022-05-21 10:17] LABS: ANION GAP 12 MMOL/L (8-16); BLOOD UREA NITROGEN 24.2 mg/dL (7-18); CO2 22 mmol/L (21-32); GLUCOSE,RANDOM 228 mg/dL (74-106)
[2022-05-21 10:20] LABS: SGOT/AST 28 U/L (15-37); SGPT/ALT 24 U/L (13-61)
[2022-05-21 10:21] LABS: BILIRUBIN,TOTAL 0.8 mg/dL (0.2-1); TOT PROT 5.4 g/dl (6.4-8.2)
[2022-05-21 10:22] LABS: ALK PHOS 138 U/L (45-117)
[2022-05-21] MEDS: HEPARIN NA (PORCINE) 5,000 UNITS/ML 1ML VIAL SQ SCH ×2 (11:13→21:13)
[2022-05-21] MEDS: OSELTAMIVIR PHOSPHATE 6 MG/1 ML NGT SCH ×2 (11:25→21:43)
[2022-05-21 13:08] LABS: URINE WBC 112.5 /uL (0-25.8)
[2022-05-21 16:34] LABS: ARTERIAL BLD GAS O2 SATURATION 96.6 % (95-98); ARTERIAL BLOOD GAS PO2 89.3 mmHg (80-100); ARTERIAL BLOOD GAS pH 7.374 (7.350-7.450)
[2022-05-21 16:35] LABS: ALLENS TEST POSITIVE
[2022-05-21 16:36] LABS: VENT MODE A/C; VENT RATE 16
[2022-05-21] MEDS: PIPERACILLIN/TAZOB 3.375 GM 3.375 GM in DEXTROSE 5%-WATER - 50 ML IVPB SCH (17:08)
[2022-05-21] MEDS ORDERED: FENTANYL NS IVPB 500 MCG/100 ML BAG IVPB ONE (18:05)
[2022-05-21] MEDS: FENTANYL NS IVPB 500 MCG/100 ML BAG IVPB SCH ×2 (18:07→23:30)
[2022-05-21] MEDS: ACETAMINOPHEN 325 MG TABLET (FP) PO PRN (21:39)
[2022-05-22] MEDS: LACTATED RINGERS SOLUTION 1,000 ML/1,000 ML INFUS.BAG IV SCH ×2 (00:19→09:53)
[2022-05-22] MEDS: PIPERACILLIN/TAZOB 3.375 GM 3.375 GM in DEXTROSE 5%-WATER - 50 ML IVPB SCH ×3 (01:42→18:40)
[2022-05-22] MEDS: PROPOFOL 1,000,000 MCG/100 ML VIAL IVPB SCH ×3 (01:45→20:25)
[2022-05-22] MEDS: INSULIN SLIDING SCALE (NOVOLOG) 1 VIAL SQ SCH ×4 (05:37→22:20)
[2022-05-22] MEDS: DEXTROSE 5%-NORMAL SALINE 1,000 ML IV SCH (06:30)
[2022-05-22] MEDS: FENTANYL NS IVPB 500 MCG/100 ML BAG IVPB SCH (06:30)
[2022-05-22 07:21] LABS: HEMATOCRIT 36.8 % (32.4-45.2); HEMOGLOBIN 11.9 GM/dL (10.7-15.3); MCHC 32.3 g/dl (32.0-36.0); MEAN CELL VOLUME 83.5 fl (80-96); PLATELET COUNT 197 10^3/uL (134-434); RBC 4.41 M/mm3 (3.60-5.2); RDW 16.3 % (11.6-15.6); WHITE BLOOD COUNT 10.2 K/mm3 (4.0-10.0)
[2022-05-22 07:48] LABS: CALCIUM 8.3 mg/dL (8.5-10.1)
[2022-05-22 07:49] LABS: ALBUMIN 2.3 g/dl (3.4-5.0); BLOOD UREA NITROGEN 19.3 mg/dL (7-18)
[2022-05-22 07:52] LABS: CREATININE 0.7 mg/dL (0.55-1.3)
[2022-05-22 07:54] LABS: BILIRUBIN,TOTAL 0.8 mg/dL (0.2-1); TOT PROT 5.5 g/dl (6.4-8.2)
[2022-05-22] MEDS: NOREPINEPHRINE BITARTRATE/D5W 8 MG/250 ML BAG IVPB SCH ×2 (09:53→20:25)
[2022-05-22] MEDS: HEPARIN NA (PORCINE) 5,000 UNITS/ML 1ML VIAL SQ SCH ×2 (09:55→21:19)
[2022-05-22] MEDS: OSELTAMIVIR PHOSPHATE 6 MG/1 ML NGT SCH ×2 (09:55→21:19)
[2022-05-22] MEDS: ACETAMINOPHEN 325 MG TABLET (FP) PO PRN (12:28)
[2022-05-22 14:56] LABS: PHOSPHOROUS 3.4 mg/dL (2.5-4.9)
[2022-05-22 15:13] LABS: MAGNESIUM 1.8 mg/dL (1.8-2.4)
[2022-05-22 15:17] LABS: PHOSPHOROUS 2.3 mg/dL (2.5-4.9)
[2022-05-22] MEDS: FAMOTIDINE 20 MG/50 ML IVPB 20 MG/50 ML MG IVPB SCH (21:19)
[2022-05-23] MEDS: FENTANYL NS IVPB 500 MCG/100 ML BAG IVPB SCH ×2 (00:52→03:15)
[2022-05-23] MEDS: PIPERACILLIN/TAZOB 3.375 GM 3.375 GM in DEXTROSE 5%-WATER - 50 ML IVPB SCH ×3 (01:20→19:14)
[2022-05-23] MEDS: PROPOFOL 1,000,000 MCG/100 ML VIAL IVPB SCH ×4 (03:15→20:00)
[2022-05-23 06:40] LABS: HEMATOCRIT 34.3 % (32.4-45.2); MCH 26.6 pg (25.7-33.7); MCHC 31.9 g/dl (32.0-36.0); MEAN CELL VOLUME 83.2 fl (80-96); MEAN PLT VOLUME 8.8 fl (7.5-11.1); PLATELET COUNT 195 10^3/uL (134-434); RBC 4.13 M/mm3 (3.60-5.2); RDW 15.9 % (11.6-15.6); WHITE BLOOD COUNT 7.6 K/mm3 (4.0-10.0)
[2022-05-23] MEDS: INSULIN SLIDING SCALE (NOVOLOG) 1 VIAL SQ SCH ×4 (06:42→21:28)
[2022-05-23 07:02] LABS: ALBUMIN 2.1 g/dl (3.4-5.0); CALCIUM 8.5 mg/dL (8.5-10.1)
[2022-05-23 07:03] LABS: BLOOD UREA NITROGEN 14.9 mg/dL (7-18)
[2022-05-23 07:05] LABS: CREATININE 0.6 mg/dL (0.55-1.3)
[2022-05-23 07:07] LABS: BILIRUBIN,TOTAL 0.7 mg/dL (0.2-1); TOT PROT 5.2 g/dl (6.4-8.2)
[2022-05-23 08:56] LABS: MAGNESIUM 1.8 mg/dL (1.8-2.4)
[2022-05-23] MEDS: NOREPINEPHRINE BITARTRATE/D5W 8 MG/250 ML BAG IVPB SCH (09:40)
[2022-05-23] MEDS: OSELTAMIVIR PHOSPHATE 6 MG/1 ML NGT SCH ×2 (09:41→21:28)
[2022-05-23] MEDS: HEPARIN NA (PORCINE) 5,000 UNITS/ML 1ML VIAL SQ SCH ×2 (09:41→21:25)
[2022-05-23] MEDS: ACETAMINOPHEN 325 MG TABLET (FP) PO PRN (14:46)
[2022-05-23] MEDS: FAMOTIDINE 20 MG/50 ML IVPB 20 MG/50 ML MG IVPB SCH (21:25)
[2022-05-24] MEDS: FENTANYL NS IVPB 500 MCG/100 ML BAG IVPB SCH (01:05)
[2022-05-24] MEDS: PIPERACILLIN/TAZOB 3.375 GM 3.375 GM in DEXTROSE 5%-WATER - 50 ML IVPB SCH ×3 (01:06→17:38)
[2022-05-24] MEDS: INSULIN SLIDING SCALE (NOVOLOG) 1 VIAL SQ SCH ×4 (06:10→21:44)
[2022-05-24] MEDS ORDERED: NAPH,MB-DB/K PH,MBDB POWDER PACKET PO ONE (07:45)
[2022-05-24 07:50] LABS: HEMATOCRIT 32.7 % (32.4-45.2); HEMOGLOBIN 10.8 GM/dL (10.7-15.3); MCH 27.3 pg (25.7-33.7); MEAN CELL VOLUME 82.9 fl (80-96); MEAN PLT VOLUME 8.4 fl (7.5-11.1); PLATELET COUNT 170 10^3/uL (134-434); RBC 3.94 M/mm3 (3.60-5.2); RDW 15.7 % (11.6-15.6); WHITE BLOOD COUNT 6.3 K/mm3 (4.0-10.0)
[2022-05-24 08:15] LABS: ALBUMIN 2.1 g/dl (3.4-5.0); CALCIUM 8.6 mg/dL (8.5-10.1)
[2022-05-24 08:16] LABS: BLOOD UREA NITROGEN 15.4 mg/dL (7-18); MAGNESIUM 1.9 mg/dL (1.8-2.4)
[2022-05-24 08:18] LABS: CREATININE 0.6 mg/dL (0.55-1.3)
[2022-05-24 08:19] LABS: PHOSPHOROUS 1.9 mg/dL (2.5-4.9)
[2022-05-24 08:20] LABS: BILIRUBIN,TOTAL 0.8 mg/dL (0.2-1)
[2022-05-24 08:21] LABS: TOT PROT 5.2 g/dl (6.4-8.2)
[2022-05-24] MEDS: HEPARIN NA (PORCINE) 5,000 UNITS/ML 1ML VIAL SQ SCH ×2 (09:18→21:39)
[2022-05-24] MEDS: OSELTAMIVIR PHOSPHATE 6 MG/1 ML NGT SCH ×2 (09:19→21:31)
[2022-05-24] MEDS: NOREPINEPHRINE BITARTRATE/D5W 8 MG/250 ML BAG IVPB SCH (09:19)
[2022-05-24] MEDS: PROPOFOL 1,000,000 MCG/100 ML VIAL IVPB SCH (09:19)
[2022-05-24] MEDS ORDERED: ACETAMINOPHEN 1000 MG/100 ML BAG IVPB PRN (16:29)
[2022-05-24] MEDS ORDERED: CALCIUM GLUCONATE 10% - 1,000 MG/10 ML VIAL IVPB ONE (20:43)
[2022-05-24] MEDS: ATORVASTATIN CA 10 MG TABLET (FP) PO SCH (21:31)
[2022-05-24] MEDS: FAMOTIDINE 20 MG/50 ML IVPB 20 MG/50 ML MG IVPB SCH (21:31)
[2022-05-24] MEDS: MONTELUKAST NA 10 MG TABLET PO SCH (21:31)
[2022-05-25] MEDS: PIPERACILLIN/TAZOB 3.375 GM 3.375 GM in DEXTROSE 5%-WATER - 50 ML IVPB SCH ×3 (01:18→17:25)
[2022-05-25] MEDS: INSULIN SLIDING SCALE (NOVOLOG) 1 VIAL SQ SCH ×4 (06:29→21:49)
[2022-05-25 07:53] LABS: HEMOGLOBIN 10.7 GM/dL (10.7-15.3); MCH 27.1 pg (25.7-33.7); MCHC 32.5 g/dl (32.0-36.0); MEAN CELL VOLUME 83.4 fl (80-96); MEAN PLT VOLUME 8.2 fl (7.5-11.1); PLATELET COUNT 164 10^3/uL (134-434); RBC 3.96 M/mm3 (3.60-5.2); RDW 15.8 % (11.6-15.6); WHITE BLOOD COUNT 11.7 K/mm3 (4.0-10.0)
[2022-05-25 07:59] LABS: CALCIUM 8.8 mg/dL (8.5-10.1)
[2022-05-25 08:00] LABS: ALBUMIN 2.3 g/dl (3.4-5.0); BLOOD UREA NITROGEN 11.9 mg/dL (7-18); MAGNESIUM 1.7 mg/dL (1.8-2.4)
[2022-05-25 08:03] LABS: CREATININE 0.5 mg/dL (0.55-1.3); PHOSPHOROUS 2.3 mg/dL (2.5-4.9)
[2022-05-25 08:04] LABS: BILIRUBIN,TOTAL 0.7 mg/dL (0.2-1); TOT PROT 5.7 g/dl (6.4-8.2)
[2022-05-25] MEDS: OSELTAMIVIR PHOSPHATE 6 MG/1 ML NGT SCH (10:50)
[2022-05-25] MEDS: HEPARIN NA (PORCINE) 5,000 UNITS/ML 1ML VIAL SQ SCH ×2 (10:56→21:48)
[2022-05-25 12:08] VITALS: BMI 25.0
[2022-05-25] MEDS: FAMOTIDINE 20 MG/50 ML IVPB 20 MG/50 ML MG IVPB SCH (21:49)
[2022-05-25] MEDS: ATORVASTATIN CA 10 MG TABLET (FP) PO SCH (21:49)
[2022-05-25] MEDS: MONTELUKAST NA 10 MG TABLET PO SCH (21:49)
[2022-05-26] MEDS ORDERED: hydrALAZINE HCL 20 MG/ML VIAL IVPUSH ONE (02:15)
[2022-05-26] MEDS: PIPERACILLIN/TAZOB 3.375 GM 3.375 GM in DEXTROSE 5%-WATER - 50 ML IVPB SCH ×3 (03:00→18:40)
[2022-05-26] MEDS: INSULIN SLIDING SCALE (NOVOLOG) 1 VIAL SQ SCH ×4 (06:48→22:23)
[2022-05-26 07:21] LABS: CALCIUM 9.1 mg/dL (8.5-10.1)
[2022-05-26 07:22] LABS: ALBUMIN 2.5 g/dl (3.4-5.0); BLOOD UREA NITROGEN 13.6 mg/dL (7-18); MAGNESIUM 1.9 mg/dL (1.8-2.4)
[2022-05-26 07:25] LABS: CREATININE 0.6 mg/dL (0.55-1.3)
[2022-05-26 07:26] LABS: BILIRUBIN,TOTAL 0.9 mg/dL (0.2-1); TOT PROT 6.2 g/dl (6.4-8.2)
[2022-05-26 07:33] LABS: HEMOGLOBIN 11.8 GM/dL (10.7-15.3); MCH 26.5 pg (25.7-33.7); MCHC 31.9 g/dl (32.0-36.0); MEAN CELL VOLUME 83.1 fl (80-96); MEAN PLT VOLUME 8.9 fl (7.5-11.1); PLATELET COUNT 222 10^3/uL (134-434); RBC 4.46 M/mm3 (3.60-5.2); RDW 15.4 % (11.6-15.6); WHITE BLOOD COUNT 12.9 K/mm3 (4.0-10.0)
[2022-05-26] MEDS: HEPARIN NA (PORCINE) 5,000 UNITS/ML 1ML VIAL SQ SCH ×2 (10:53→22:10)
[2022-05-26] MEDS: FAMOTIDINE 20 MG/50 ML IVPB 20 MG/50 ML MG IVPB SCH (22:09)
[2022-05-26] MEDS: ATORVASTATIN CA 10 MG TABLET (FP) PO SCH (22:10)
[2022-05-26] MEDS: MONTELUKAST NA 10 MG TABLET PO SCH (22:10)
[2022-05-27] MEDS: PIPERACILLIN/TAZOB 3.375 GM 3.375 GM in DEXTROSE 5%-WATER - 50 ML IVPB SCH ×3 (02:26→17:01)
[2022-05-27] MEDS: INSULIN SLIDING SCALE (NOVOLOG) 1 VIAL SQ SCH ×4 (07:21→22:35)
[2022-05-27 07:38] LABS: BASO % 0.8 % (0-2.0); EOS % 1.5 % (0-4.5); HEMOGLOBIN 10.9 GM/dL (10.7-15.3); LYMPH % 14.3 % (8-40); MCH 27.5 pg (25.7-33.7); MCHC 33.2 g/dl (32.0-36.0); MEAN CELL VOLUME 82.9 fl (80-96); MEAN PLT VOLUME 8.3 fl (7.5-11.1); MONO % 8.5 % (3.8-10.2); NEUT % 74.9 % (42.8-82.8); PLATELET COUNT 207 10^3/uL (134-434); RBC 3.98 M/mm3 (3.60-5.2); RDW 15.6 % (11.6-15.6); WHITE BLOOD COUNT 9.8 K/mm3 (4.0-10.0)
[2022-05-27 08:06] LABS: ALBUMIN 2.4 g/dl (3.4-5.0); BLOOD UREA NITROGEN 21.4 mg/dL (7-18); CALCIUM 8.7 mg/dL (8.5-10.1); MAGNESIUM 1.9 mg/dL (1.8-2.4)
[2022-05-27 08:09] LABS: CREATININE 0.6 mg/dL (0.55-1.3); PHOSPHOROUS 3.2 mg/dL (2.5-4.9)
[2022-05-27 08:11] LABS: BILIRUBIN,TOTAL 0.8 mg/dL (0.2-1)
[2022-05-27] MEDS: HEPARIN NA (PORCINE) 5,000 UNITS/ML 1ML VIAL SQ SCH ×2 (09:59→22:34)
[2022-05-27] MEDS ORDERED: POTASSIUM CHLORIDE TABS 10 MEQ TABLET.ER (FP) PO ONE (11:20)
[2022-05-27] MEDS: KCL 10 MEQ IVPB 10 MEQ/100 ML INFUS.BAG IVPB SCH ×2 (12:14→13:22)
[2022-05-27] MEDS: FAMOTIDINE 20 MG/50 ML IVPB 20 MG/50 ML MG IVPB SCH (22:34)
[2022-05-27] MEDS: ATORVASTATIN CA 10 MG TABLET (FP) PO SCH (22:34)
[2022-05-27] MEDS: MONTELUKAST NA 10 MG TABLET PO SCH (22:35)
[2022-05-28] MEDS: PIPERACILLIN/TAZOB 3.375 GM 3.375 GM in DEXTROSE 5%-WATER - 50 ML IVPB SCH ×3 (01:57→17:31)
[2022-05-28] MEDS: INSULIN SLIDING SCALE (NOVOLOG) 1 VIAL SQ SCH ×4 (06:30→22:00)
[2022-05-28] MEDS: HEPARIN NA (PORCINE) 5,000 UNITS/ML 1ML VIAL SQ SCH ×2 (09:43→21:57)
[2022-05-28] MEDS ORDERED: KCL 10 MEQ IVPB 10 MEQ/100 ML INFUS.BAG IVPB SCH (09:45)
[2022-05-28 11:33] LABS: MAGNESIUM 1.9 mg/dL (1.8-2.4)
[2022-05-28] MEDS: ATORVASTATIN CA 10 MG TABLET (FP) PO SCH (21:58)
[2022-05-28] MEDS: FAMOTIDINE 20 MG/50 ML IVPB 20 MG/50 ML MG IVPB SCH (21:58)
[2022-05-28] MEDS: MONTELUKAST NA 10 MG TABLET PO SCH (21:58)
[2022-05-29] MEDS: PIPERACILLIN/TAZOB 3.375 GM 3.375 GM in DEXTROSE 5%-WATER - 50 ML IVPB SCH ×3 (02:23→17:38)
[2022-05-29] MEDS: INSULIN SLIDING SCALE (NOVOLOG) 1 VIAL SQ SCH ×4 (06:16→23:46)
[2022-05-29] MEDS: HEPARIN NA (PORCINE) 5,000 UNITS/ML 1ML VIAL SQ SCH ×2 (11:14→22:58)
[2022-05-29] MEDS: amLODIPine BESYLATE 5 MG TABLET (FP) PO SCH (11:14)
[2022-05-29] MEDS ORDERED: INSULIN (NOVOLOG) ASPART 100 UNITS/ML 10ML VIAL ONE ×2 (11:21→17:33)
[2022-05-29 13:50] LABS: BLOOD UREA NITROGEN 23.4 mg/dL (7-18)
[2022-05-29 13:51] LABS: ALBUMIN 2.5 g/dl (3.4-5.0); CALCIUM 9.1 mg/dL (8.5-10.1); MAGNESIUM 1.9 mg/dL (1.8-2.4)
[2022-05-29 13:53] LABS: CREATININE 0.6 mg/dL (0.55-1.3)
[2022-05-29 13:55] LABS: BILIRUBIN,TOTAL 1.1 mg/dL (0.2-1); TOT PROT 6.4 g/dl (6.4-8.2)
[2022-05-29] MEDS: ATORVASTATIN CA 10 MG TABLET (FP) PO SCH (22:58)
[2022-05-29] MEDS: MONTELUKAST NA 10 MG TABLET PO SCH (22:59)
[2022-05-29] MEDS: FAMOTIDINE 20 MG/50 ML IVPB 20 MG/50 ML MG IVPB SCH (22:59)
[2022-05-30] MEDS: PIPERACILLIN/TAZOB 3.375 GM 3.375 GM in DEXTROSE 5%-WATER - 50 ML IVPB SCH ×3 (02:54→17:45)
[2022-05-30] MEDS: INSULIN SLIDING SCALE (NOVOLOG) 1 VIAL SQ SCH ×5 (07:03→23:16)
[2022-05-30] MEDS: HEPARIN NA (PORCINE) 5,000 UNITS/ML 1ML VIAL SQ SCH ×2 (10:32→22:27)
[2022-05-30] MEDS: amLODIPine BESYLATE 5 MG TABLET (FP) PO SCH (10:32)
[2022-05-30 10:51] LABS: HEMATOCRIT 38.8 % (32.4-45.2); HEMOGLOBIN 12.1 GM/dL (10.7-15.3); MCH 26.3 pg (25.7-33.7); MCHC 31.2 g/dl (32.0-36.0); MEAN CELL VOLUME 84.4 fl (80-96); MEAN PLT VOLUME 8.7 fl (7.5-11.1); PLATELET COUNT 261 10^3/uL (134-434); RDW 15.9 % (11.6-15.6)
[2022-05-30 11:14] LABS: CHLORIDE 103 mmol/L (98-107); SODIUM 146 mmol/L (136-145)
[2022-05-30 11:18] LABS: ALBUMIN 2.5 g/dl (3.4-5.0); BLOOD UREA NITROGEN 21.9 mg/dL (7-18); CALCIUM 9.1 mg/dL (8.5-10.1); CO2 31 mmol/L (21-32); GLUCOSE,RANDOM 128 mg/dL (74-106)
[2022-05-30 11:21] LABS: SGPT/ALT 22 U/L (13-61)
[2022-05-30 11:22] LABS: CREATININE 0.6 mg/dL (0.55-1.3); SGOT/AST 29 U/L (15-37)
[2022-05-30 11:23] LABS: TOT PROT 6.3 g/dl (6.4-8.2)
[2022-05-30] MEDS ORDERED: PIPERACILLIN/TAZOBACTAM 3.375 GM VIAL IVPB ONE (11:27)
[2022-05-30 11:32] LABS: ALK PHOS 190 U/L (45-117); ANION GAP 11 MMOL/L (8-16)
[2022-05-30] MEDS ORDERED: POTASSIUM CHLORIDE TABS 20 MEQ TABLET.ER (FP) PO ONE (12:57)
[2022-05-30] MEDS ORDERED: INSULIN (NOVOLOG) ASPART 100 UNITS/ML 10ML VIAL ONE (13:09)
[2022-05-30] MEDS: KCL 10 MEQ IVPB 10 MEQ/100 ML INFUS.BAG IVPB SCH ×2 (13:11→14:16)
[2022-05-30] MEDS: POTASSIUM CHLORIDE 20 MEQ in AMINO ACIDS 4.25%/D5W 1,000 ML IV SCH (18:10)
[2022-05-30] MEDS: MONTELUKAST NA 10 MG TABLET PO SCH (22:26)
[2022-05-30] MEDS: FAMOTIDINE 20 MG/50 ML IVPB 20 MG/50 ML MG IVPB SCH (22:27)
[2022-05-30] MEDS: ATORVASTATIN CA 10 MG TABLET (FP) PO SCH (22:27)
[2022-05-31] MEDS: PIPERACILLIN/TAZOB 3.375 GM 3.375 GM in DEXTROSE 5%-WATER - 50 ML IVPB SCH ×2 (02:42→10:05)
[2022-05-31] MEDS: INSULIN SLIDING SCALE (NOVOLOG) 1 VIAL SQ SCH ×4 (06:32→22:45)
[2022-05-31] MEDS: HEPARIN NA (PORCINE) 5,000 UNITS/ML 1ML VIAL SQ SCH ×2 (10:05→22:41)
[2022-05-31] MEDS: amLODIPine BESYLATE 5 MG TABLET (FP) PO SCH (10:05)
[2022-05-31 10:40] LABS: ALBUMIN 2.4 g/dl (3.4-5.0); MAGNESIUM 1.8 mg/dL (1.8-2.4)
[2022-05-31 10:43] LABS: CREATININE 0.6 mg/dL (0.55-1.3); PHOSPHOROUS 1.9 mg/dL (2.5-4.9)
[2022-05-31 10:45] LABS: BILIRUBIN,TOTAL 0.9 mg/dL (0.2-1); TOT PROT 6.3 g/dl (6.4-8.2)
[2022-05-31] MEDS ORDERED: POTASSIUM CHLORIDE TABS 20 MEQ TABLET.ER (FP) PO ONE (15:55)
[2022-05-31] MEDS ORDERED: NAPH,MB-DB/K PH,MBDB POWDER PACKET PO SCH (15:55)
[2022-05-31] MEDS: POTASSIUM CHLORIDE 20 MEQ in AMINO ACIDS 4.25%/D5W 1,000 ML IV SCH (18:16)
[2022-05-31] MEDS ORDERED: POTASSIUM PHOSPHATE 30 MM in SODIUM CHLORIDE 500 ML IVPB ONE (19:00)
[2022-05-31] MEDS: MONTELUKAST NA 10 MG TABLET PO SCH (22:38)
[2022-05-31] MEDS: ATORVASTATIN CA 10 MG TABLET (FP) PO SCH (22:39)
[2022-05-31] MEDS ORDERED: INSULIN (NOVOLOG) ASPART 100 UNITS/ML 10ML VIAL ONE (22:45)
[2022-05-31] MEDS: FAMOTIDINE 20 MG/50 ML IVPB 20 MG/50 ML MG IVPB SCH (22:47)
[2022-06-01] MEDS: INSULIN SLIDING SCALE (NOVOLOG) 1 VIAL SQ SCH ×4 (06:49→21:57)
[2022-06-01] MEDS ORDERED: INSULIN (NOVOLOG) ASPART 100 UNITS/ML 10ML VIAL ONE (07:05)
[2022-06-01] MEDS: amLODIPine BESYLATE 5 MG TABLET (FP) PO SCH (09:31)
[2022-06-01] MEDS: HEPARIN NA (PORCINE) 5,000 UNITS/ML 1ML VIAL SQ SCH ×2 (09:31→21:37)
[2022-06-01 09:55] LABS: ALBUMIN 2.2 g/dl (3.4-5.0)
[2022-06-01 09:56] LABS: BLOOD UREA NITROGEN 26.6 mg/dL (7-18); CALCIUM 8.3 mg/dL (8.5-10.1)
[2022-06-01 09:58] LABS: CREATININE 0.5 mg/dL (0.55-1.3)
[2022-06-01 10:00] LABS: BILIRUBIN,TOTAL 0.6 mg/dL (0.2-1); TOT PROT 5.6 g/dl (6.4-8.2)
[2022-06-01] MEDS: POTASSIUM CHLORIDE ORAL LIQUID 20 MEQ/15 ML PO ONE ×2 (15:15→15:24)
[2022-06-01] MEDS: POTASSIUM CHLORIDE 20 MEQ in AMINO ACIDS 4.25%/D5W 1,000 ML IV SCH ×2 (16:14→17:34)
[2022-06-01] MEDS: ATORVASTATIN CA 10 MG TABLET (FP) PO SCH (21:37)
[2022-06-01] MEDS: FAMOTIDINE 20 MG/50 ML IVPB 20 MG/50 ML MG IVPB SCH (21:38)
[2022-06-01] MEDS: MONTELUKAST NA 10 MG TABLET PO SCH (21:38)
[2022-06-02] MEDS: INSULIN SLIDING SCALE (NOVOLOG) 1 VIAL SQ SCH ×4 (06:24→21:17)
[2022-06-02 09:25] LABS: BASO % 1.2 % (0-2.0); HEMOGLOBIN 11.7 GM/dL (10.7-15.3); LYMPH % 13.2 % (8-40); MCH 26.6 pg (25.7-33.7); MCHC 31.6 g/dl (32.0-36.0); MEAN CELL VOLUME 84.3 fl (80-96); MEAN PLT VOLUME 9.3 fl (7.5-11.1); NEUT % 77.6 % (42.8-82.8); PLATELET COUNT 307 10^3/uL (134-434); RBC 4.39 M/mm3 (3.60-5.2); RDW 15.9 % (11.6-15.6); WHITE BLOOD COUNT 10.1 K/mm3 (4.0-10.0)
[2022-06-02 09:50] LABS: CALCIUM 8.7 mg/dL (8.5-10.1)
[2022-06-02 09:51] LABS: ALBUMIN 2.2 g/dl (3.4-5.0); BLOOD UREA NITROGEN 21.3 mg/dL (7-18)
[2022-06-02] MEDS: HEPARIN NA (PORCINE) 5,000 UNITS/ML 1ML VIAL SQ SCH ×2 (09:52→21:05)
[2022-06-02] MEDS: amLODIPine BESYLATE 5 MG TABLET (FP) PO SCH (09:53)
[2022-06-02 09:54] LABS: CREATININE 0.5 mg/dL (0.55-1.3)
[2022-06-02 09:55] LABS: BILIRUBIN,TOTAL 0.7 mg/dL (0.2-1); TOT PROT 5.8 g/dl (6.4-8.2)
[2022-06-02] MEDS: POTASSIUM CHLORIDE 20 MEQ in AMINO ACIDS 4.25%/D5W 1,000 ML IV SCH (17:30)
[2022-06-02] MEDS: MONTELUKAST NA 10 MG TABLET PO SCH (21:05)
[2022-06-02] MEDS: ATORVASTATIN CA 10 MG TABLET (FP) PO SCH (21:05)
[2022-06-02] MEDS: FAMOTIDINE 20 MG/50 ML IVPB 20 MG/50 ML MG IVPB SCH (21:05)
[2022-06-03] MEDS: INSULIN SLIDING SCALE (NOVOLOG) 1 VIAL SQ SCH ×3 (06:15→16:19)
[2022-06-03] MEDS: amLODIPine BESYLATE 5 MG TABLET (FP) PO SCH (11:41)
[2022-06-03] MEDS: HEPARIN NA (PORCINE) 5,000 UNITS/ML 1ML VIAL SQ SCH ×2 (11:41→22:00)
[2022-06-03] MEDS: POTASSIUM CHLORIDE 20 MEQ in AMINO ACIDS 4.25%/D5W 1,000 ML IV SCH (16:19)
[2022-06-03] MEDS: FAMOTIDINE 20 MG/50 ML IVPB 20 MG/50 ML MG IVPB SCH (22:00)
[2022-06-03] MEDS: ATORVASTATIN CA 10 MG TABLET (FP) PO SCH (22:00)
[2022-06-03] MEDS: MONTELUKAST NA 10 MG TABLET PO SCH (22:00)
[2022-06-04] MEDS: INSULIN SLIDING SCALE (NOVOLOG) 1 VIAL SQ SCH ×5 (00:20→22:22)
[2022-06-04] MEDS: amLODIPine BESYLATE 5 MG TABLET (FP) PO SCH (10:00)
[2022-06-04 10:53] LABS: HEMATOCRIT 38.4 % (32.4-45.2); HEMOGLOBIN 12.3 GM/dL (10.7-15.3); MCH 26.9 pg (25.7-33.7); MEAN CELL VOLUME 84.3 fl (80-96); MEAN PLT VOLUME 8.6 fl (7.5-11.1); PLATELET COUNT 321 10^3/uL (134-434); RBC 4.56 M/mm3 (3.60-5.2); RDW 16.5 % (11.6-15.6); WHITE BLOOD COUNT 8.5 K/mm3 (4.0-10.0)
[2022-06-04 11:11] LABS: ALBUMIN 2.3 g/dl (3.4-5.0); BLOOD UREA NITROGEN 22.4 mg/dL (7-18); MAGNESIUM 1.7 mg/dL (1.8-2.4)
[2022-06-04 11:13] LABS: CREATININE 0.5 mg/dL (0.55-1.3); PHOSPHOROUS 2.1 mg/dL (2.5-4.9)
[2022-06-04 11:14] LABS: BILIRUBIN,TOTAL 0.6 mg/dL (0.2-1)
[2022-06-04 11:15] LABS: TOT PROT 6.1 g/dl (6.4-8.2)
[2022-06-04] MEDS ORDERED: MAGNESIUM SULF 50% (8.12 MEQ/2 ML-1 GM VIAL) IVPB ONE (14:19)
[2022-06-04] MEDS ORDERED: POTASSIUM PHOSPHATE 30 MM in SODIUM CHLORIDE 500 ML IVPB ONE (15:30)
[2022-06-04] MEDS: POTASSIUM CHLORIDE 20 MEQ in AMINO ACIDS 4.25%/D5W 1,000 ML IV SCH (15:35)
[2022-06-04] MEDS: FAMOTIDINE 20 MG/50 ML IVPB 20 MG/50 ML MG IVPB SCH (21:33)
[2022-06-04] MEDS: MONTELUKAST NA 10 MG TABLET PO SCH (21:33)
[2022-06-04] MEDS: HEPARIN NA (PORCINE) 5,000 UNITS/ML 1ML VIAL SQ SCH (21:33)
[2022-06-05] MEDS: INSULIN SLIDING SCALE (NOVOLOG) 1 VIAL SQ SCH ×4 (06:51→23:24)
[2022-06-05 06:59] LABS: EPI CELLS 4 /uL (0-25.1); HYALINE CASTS 1 /uL (0-3.1); PH,URINE 5.5 (5.0-8.0); URINE APPEARANCE CLEAR; URINE BACTERIA 278 /uL (0-1359); URINE BILIRUBIN NEGATIVE (NEGATIVE); URINE COLOR YELLOW; URINE GLUCOSE (UA) NEGATIVE (NEGATIVE); URINE KETONE NEGATIVE (NEGATIVE); URINE LEUK ESTERASE 1+ (NEGATIVE); URINE NITRITE NEGATIVE (NEGATIVE); URINE PROTEIN NEGATIVE (NEGATIVE); URINE RBC 15 /uL (0-23.9); URINE UROBILINOGEN 0.2 mg/dL (0.2-1.0); URINE WBC 161 /uL (0-25.8)
[2022-06-05] MEDS: AMINO ACIDS/PROTEIN HYDROLYS 30 ML LIQUID.PKT PO SCH ×3 (08:53→18:47)
[2022-06-05] MEDS: HEPARIN NA (PORCINE) 5,000 UNITS/ML 1ML VIAL SQ SCH ×2 (09:00→21:38)
[2022-06-05] MEDS: amLODIPine BESYLATE 5 MG TABLET (FP) PO SCH (09:00)
[2022-06-05] MEDS ORDERED: INSULIN (NOVOLOG) ASPART 100 UNITS/ML 10ML VIAL ONE ×2 (11:29→18:17)
[2022-06-05 15:52] VITALS: RESP 20
[2022-06-05] MEDS: POTASSIUM CHLORIDE 20 MEQ in AMINO ACIDS 4.25%/D5W 1,000 ML IV SCH (16:28)
[2022-06-05] MEDS: FAMOTIDINE 20 MG/50 ML IVPB 20 MG/50 ML MG IVPB SCH (21:38)
[2022-06-05] MEDS: MONTELUKAST NA 10 MG TABLET PO SCH (21:38)
[2022-06-06] MEDS: INSULIN SLIDING SCALE (NOVOLOG) 1 VIAL SQ SCH ×2 (06:16→11:22)
[2022-06-06] MEDS: CYPROHEPTADINE HCL 4 MG TABLET PO SCH ×2 (06:20→11:27)
[2022-06-06 07:41] VITALS: BP 153/69; PULSE 67; TEMP 98.4
[2022-06-06] MEDS ORDERED: DRONABINOL 2.5 MG CAPSULE PO SCH (08:00)
[2022-06-06] MEDS: AMINO ACIDS/PROTEIN HYDROLYS 30 ML LIQUID.PKT PO SCH (08:45)
[2022-06-06] MEDS: amLODIPine BESYLATE 5 MG TABLET (FP) PO SCH (09:42)
[2022-06-06] MEDS: HEPARIN NA (PORCINE) 5,000 UNITS/ML 1ML VIAL SQ SCH (09:42)
[2022-06-06] MEDS ORDERED: MEGESTROL ACETATE 20 MG TABLET PO SCH (10:00)
[2022-06-06 10:44] LABS: HEMATOCRIT 37.5 % (32.4-45.2); HEMOGLOBIN 11.8 GM/dL (10.7-15.3); MCH 26.7 pg (25.7-33.7); MCHC 31.5 g/dl (32.0-36.0); MEAN PLT VOLUME 8.9 fl (7.5-11.1); PLATELET COUNT 298 10^3/uL (134-434); RBC 4.42 M/mm3 (3.60-5.2); WHITE BLOOD COUNT 7.7 K/mm3 (4.0-10.0)
[2022-06-06 11:09] LABS: CALCIUM 9.1 mg/dL (8.5-10.1)
[2022-06-06 11:10] LABS: BLOOD UREA NITROGEN 27.8 mg/dL (7-18)
[2022-06-06 11:14] LABS: CREATININE 0.6 mg/dL (0.55-1.3)
== END 2022-06-06 12:37 | DRG 871 ==
LOC: JER 20:42 → JERBED 21:01 → JICU 05-21 10:28 → J6S 05-28 00:59 → J8W 05-28 15:05
PROVIDERS: ADMIT Family Medicine; ATTEND Family Medicine
PROC: 5A1945Z Respiratory Ventilation, 24-96 Consecutive Hours (ICD-10-PCS; principal; 2022-05-20)
PROC: 0BH17EZ Insertion of Endotracheal Airway into Trachea, Via Natural or Artificial Opening (ICD-10-PCS; 2022-05-20)
PROC: 0DH67UZ Insertion of Feeding Device into Stomach, Via Natural or Artificial Opening (ICD-10-PCS; 2022-05-20)
PROC: 5A12012 Performance of Cardiac Output, Single, Manual (ICD-10-PCS; 2022-05-20)
PROC: 4B02XSZ Measurement of Cardiac Pacemaker, External Approach (ICD-10-PCS; 2022-05-22)
DX: A41.9 Sepsis, unspecified organism (principal); I46.9 Cardiac arrest, cause unspecified; J96.01 Acute respiratory failure with hypoxia; J11.00 Influenza due to unidentified influenza virus with unspecified type of pneumonia; R65.21 Severe sepsis with septic shock; I50.30 Unspecified diastolic (congestive) heart failure; I24.8 Other forms of acute ischemic heart disease; E87.20 Acidosis, unspecified; E46 Unspecified protein-calorie malnutrition; E87.5 Hyperkalemia; E78.5 Hyperlipidemia, unspecified; E11.9 Type 2 diabetes mellitus without complications; Z68.24 Body mass index [BMI] 24.0-24.9, adult; E87.6 Hypokalemia
CPT/HCPCS: 0241U-QW; 36415; 36600; 70450-TC; 71045-TC-FY; 80048; 80053; 81003; 82550; 82607; 82803; 82962; 83605; 83735; 83880; 84100; 84443; 84484; 85025; 85027; 85610; 85730; 86780; 86850; 86900; 86901; 87040; 87070; 87086; 87205; 93005; 93010; 93306-TC; 94002; 97116-GP; 97162-GP; 99285-25; C9803-CS; J1644; J8999; U0003; U0005

== ENCOUNTER 2022-11-12 18:04 | Inpatient (IN) | payer OTHER, BC ==
[2022-11-12 18:14] VITALS: BMI 23.0
[2022-11-12] MEDS ORDERED: morphine CARPU-JECT 2 MG/1 ML DISP.SYRIN IVPUSH ONE (18:38)
[2022-11-12 19:15] LABS: BASO % 0.6 % (0-2.0); EOS % 3.3 % (0-4.5); HEMATOCRIT 36.2 % (32.4-45.2); HEMOGLOBIN 11.8 GM/dL (10.7-15.3); LYMPH % 26.5 % (8-40); MCH 27.7 pg (25.7-33.7); MCHC 32.5 g/dl (32.0-36.0); MEAN CELL VOLUME 85.3 fl (80-96); MEAN PLT VOLUME 8.5 fl (7.5-11.1); MONO % 8.8 % (3.8-10.2); NEUT % 60.8 % (42.8-82.8); PLATELET COUNT 252 10^3/uL (134-434); RBC 4.24 M/mm3 (3.60-5.2); RDW 14.2 % (11.6-15.6); WHITE BLOOD COUNT 8.6 K/mm3 (4.0-10.0)
[2022-11-12 19:22] LABS: INR 1.04 (0.83-1.09); PROTHROMBIN TIME (PATIENT) 12.1 SEC (9.7-13.0)
[2022-11-12 19:45] LABS: ALBUMIN 3.3 g/dl (3.4-5.0); BLOOD UREA NITROGEN 37.5 mg/dL (7-18)
[2022-11-12 19:48] LABS: CREATININE 1.5 mg/dL (0.55-1.3)
[2022-11-12 19:50] LABS: BILIRUBIN,TOTAL 0.4 mg/dL (0.2-1); TOT PROT 7.3 g/dl (6.4-8.2)
[2022-11-12] MEDS ORDERED: morphine CARPU-JECT 4 MG/1 ML DISP.SYRIN IVPUSH ONE (20:27)
[2022-11-12] MEDS ORDERED: morphine SULFATE 4 MG/ML VIAL ONE (20:31)
[2022-11-12 21:13] LABS: EPI CELLS 10 /uL (0-25.1); HYALINE CASTS 0 /uL (0-3.1); PH,URINE 6.5 (5.0-8.0); URINE APPEARANCE CLEAR; URINE BACTERIA >9,000 /uL (0-1359); URINE BILIRUBIN NEGATIVE (NEGATIVE); URINE COLOR YELLOW; URINE GLUCOSE (UA) NEGATIVE (NEGATIVE); URINE KETONE NEGATIVE (NEGATIVE); URINE LEUK ESTERASE TRACE (NEGATIVE); URINE NITRITE POSITIVE (NEGATIVE); URINE PROTEIN NEGATIVE (NEGATIVE); URINE RBC 4 /uL (0-23.9); URINE WBC 38 /uL (0-25.8)
[2022-11-12] MEDS ORDERED: SODIUM CHLORIDE 1,000 ML IV SCH (23:15)
[2022-11-13] MEDS: SODIUM CHLORIDE 1,000 ML IV SCH ×2 (00:52→02:00)
[2022-11-13] MEDS ORDERED: oxyCODONE HCL 5 MG TABLET PO PRN (01:27)
[2022-11-13 08:13] LABS: HEMATOCRIT 36.1 % (32.4-45.2); HEMOGLOBIN 11.5 GM/dL (10.7-15.3); MCH 27.7 pg (25.7-33.7); MCHC 31.9 g/dl (32.0-36.0); MEAN CELL VOLUME 86.9 fl (80-96); MEAN PLT VOLUME 9.2 fl (7.5-11.1); PLATELET COUNT 245 10^3/uL (134-434); RBC 4.15 M/mm3 (3.60-5.2); RDW 14.4 % (11.6-15.6); WHITE BLOOD COUNT 9.8 K/mm3 (4.0-10.0)
[2022-11-13 08:18] LABS: INR 1.1 (0.83-1.09); PROTHROMBIN TIME (PATIENT) 12.7 SEC (9.7-13.0)
[2022-11-13 08:33] LABS: POTASSIUM 4.8 mmol/L (3.5-5.1)
[2022-11-13 08:36] LABS: CALCIUM 9.1 mg/dL (8.5-10.1)
[2022-11-13 08:37] LABS: ALBUMIN 3.1 g/dl (3.4-5.0); MAGNESIUM 2.1 mg/dL (1.8-2.4)
[2022-11-13 08:40] LABS: CREATININE 1.2 mg/dL (0.55-1.3); PHOSPHOROUS 3.5 mg/dL (2.5-4.9)
[2022-11-13 08:41] LABS: TOT PROT 6.8 g/dl (6.4-8.2)
[2022-11-13 08:42] LABS: BILIRUBIN,TOTAL 0.7 mg/dL (0.2-1)
[2022-11-13] MEDS: CEFTRIAXONE 1 GM in DEXTROSE 5%-WATER - 50 ML IVPB SCH (09:19)
[2022-11-13] MEDS ORDERED: LISINOPRIL 10 MG TABLET PO SCH ×2 (10:00→22:00)
[2022-11-13] MEDS ORDERED: amLODIPine BESYLATE 5 MG TABLET (FP) PO SCH (10:00)
[2022-11-13] MEDS ORDERED: SODIUM CHLORIDE 500 ML IV SCH (11:45)
[2022-11-13] MEDS: TIOTROPIUM BROMIDE 2.5 MCG (SPIRIVA) RESPIMAT INHALER IH SCH (14:13)
[2022-11-13] MEDS ORDERED: DEXTROSE 5%-WATER - 1,000 ML IV SCH (15:15)
[2022-11-13] MEDS: INSULIN SLIDING SCALE (NOVOLOG) 1 VIAL SQ SCH ×2 (16:29→22:08)
[2022-11-13] MEDS ORDERED: ATORVASTATIN CA 10 MG TABLET (FP) PO SCH (22:00)
[2022-11-13] MEDS ORDERED: MONTELUKAST NA 10 MG TABLET PO SCH (22:00)
[2022-11-14] MEDS: INSULIN SLIDING SCALE (NOVOLOG) 1 VIAL SQ SCH ×4 (06:14→22:20)
[2022-11-14] MEDS: CEFTRIAXONE 1 GM in DEXTROSE 5%-WATER - 50 ML IVPB SCH (09:53)
[2022-11-14] MEDS: TIOTROPIUM BROMIDE 2.5 MCG (SPIRIVA) RESPIMAT INHALER IH SCH (10:02)
[2022-11-14 10:10] LABS: HEMOGLOBIN 11.1 GM/dL (10.7-15.3); MCH 27.3 pg (25.7-33.7); MCHC 31.6 g/dl (32.0-36.0); MEAN CELL VOLUME 86.3 fl (80-96); MEAN PLT VOLUME 9.4 fl (7.5-11.1); PLATELET COUNT 236 10^3/uL (134-434); RBC 4.05 M/mm3 (3.60-5.2); RDW 14.2 % (11.6-15.6); WHITE BLOOD COUNT 12.2 K/mm3 (4.0-10.0)
[2022-11-14 10:29] LABS: POTASSIUM 4.7 mmol/L (3.5-5.1)
[2022-11-14 10:40] LABS: ALBUMIN 2.8 g/dl (3.4-5.0); BLOOD UREA NITROGEN 32.5 mg/dL (7-18); CALCIUM 9.4 mg/dL (8.5-10.1)
[2022-11-14 10:43] LABS: CREATININE 0.8 mg/dL (0.55-1.3)
[2022-11-14 10:44] LABS: BILIRUBIN,TOTAL 1.2 mg/dL (0.2-1)
[2022-11-14 10:45] LABS: TOT PROT 6.6 g/dl (6.4-8.2)
[2022-11-14] MEDS ORDERED: MIDAZOLAM HCL 2 MG/2 ML SINGLE DOSE VIAL ONE (11:45)
[2022-11-14] MEDS ORDERED: BUPIVACAINE HCL/PF 0.5% (5MG/ML) 10 ML VIAL ONE (11:46)
[2022-11-14] MEDS ORDERED: ceFAZolin SODIUM 1 GM VIAL IVPB ONE (12:22)
[2022-11-14] MEDS ORDERED: KETAMINE HCL 500 MG/10 ML VIAL ONE (12:47)
[2022-11-14] MEDS ORDERED: ACETAMINOPHEN 1000 MG/100 ML BAG IVPB ONE ×2 (13:37→15:00)
[2022-11-14] MEDS ORDERED: ONDANSETRON 4 MG/2 ML VIAL IVPUSH PRN ×2 (13:37→14:00)
[2022-11-14] MEDS ORDERED: LACTATED RINGERS SOLUTION 1,000 ML IV SCH ×2 (13:45→14:00)
[2022-11-14] MEDS ORDERED: DEXTROSE 5%-WATER - 1,000 ML IV SCH (14:00)
[2022-11-14] MEDS ORDERED: ACETAMINOPHEN INJECTION 100 ML IVPB ONE (14:55)
[2022-11-14 17:04] VITALS: RESP 18
[2022-11-14] MEDS ORDERED: CEFAZOLIN 2 GM in DEXTROSE 5%-WATER - 50 ML IVPB SCH (21:00)
[2022-11-14] MEDS: CEFAZOLIN SODIUM 2 GM in DEXTROSE 5%-WATER 100 ML IVPB SCH (21:05)
[2022-11-14] MEDS ORDERED: ATORVASTATIN CA 10 MG TABLET (FP) PO SCH (22:00)
[2022-11-14] MEDS ORDERED: MONTELUKAST NA 10 MG TABLET PO SCH (22:00)
[2022-11-15] MEDS: CEFAZOLIN SODIUM 2 GM in DEXTROSE 5%-WATER 100 ML IVPB SCH (02:47)
[2022-11-15] MEDS: INSULIN SLIDING SCALE (NOVOLOG) 1 VIAL SQ SCH ×2 (06:11→11:23)
[2022-11-15 09:09] LABS: HEMATOCRIT 31.8 % (32.4-45.2); HEMOGLOBIN 10.4 GM/dL (10.7-15.3); MCH 27.8 pg (25.7-33.7); MCHC 32.7 g/dl (32.0-36.0); MEAN CELL VOLUME 85.1 fl (80-96); MEAN PLT VOLUME 8.7 fl (7.5-11.1); PLATELET COUNT 184 10^3/uL (134-434); RBC 3.73 M/mm3 (3.60-5.2); RDW 14.4 % (11.6-15.6); WHITE BLOOD COUNT 10.6 K/mm3 (4.0-10.0)
[2022-11-15 09:29] LABS: POTASSIUM 5.1 mmol/L (3.5-5.1)
[2022-11-15 09:35] LABS: BLOOD UREA NITROGEN 39.8 mg/dL (7-18); CALCIUM 9.1 mg/dL (8.5-10.1)
[2022-11-15 09:40] LABS: CREATININE 1.1 mg/dL (0.55-1.3)
[2022-11-15] MEDS ORDERED: CEFTRIAXONE 1 GM in DEXTROSE 5%-WATER - 50 ML IVPB SCH (10:00)
[2022-11-15] MEDS ORDERED: TIOTROPIUM BROMIDE 2.5 MCG (SPIRIVA) RESPIMAT INHALER IH SCH (10:00)
[2022-11-15] MEDS ORDERED: ENOXAPARIN NA (PORCINE) 40 MG/0.4 ML DISP.SYRIN SQ SCH ×2 (10:00)
[2022-11-15] MEDS ORDERED: SODIUM CHLORIDE 1,000 ML IV SCH (13:15)
[2022-11-15 15:20] VITALS: BP 106/50; PULSE 64; TEMP 98.2
== END 2022-11-15 16:42 | DRG 481 ==
LOC: JER 18:04 → JERBED 20:37 → J6S 11-13 01:18
PROVIDERS: ADMIT Internal Medicine; ATTEND Family Medicine
PROC: 0QS636Z Reposition Right Upper Femur with Intramedullary Internal Fixation Device, Percutaneous Approach (ICD-10-PCS; principal; 2022-11-14 12:00)
DX: S72.141A Displaced intertrochanteric fracture of right femur, initial encounter for closed fracture (principal); N17.9 Acute kidney failure, unspecified; S72.91XA Unspecified fracture of right femur, initial encounter for closed fracture; W19.XXXA Unspecified fall, initial encounter; Y93.9 Activity, unspecified; Y92.099 Unspecified place in other non-institutional residence as the place of occurrence of the external cause; Y99.9 Unspecified external cause status; Z95.0 Presence of cardiac pacemaker; E78.5 Hyperlipidemia, unspecified; I10 Essential (primary) hypertension; E11.9 Type 2 diabetes mellitus without complications
CPT/HCPCS: 36415; 71045-TC-FY; 73502-TC-RT-FY; 73700-TC-RT; 76000-TC-FY; 76775-TC; 80048; 80053; 81003; 82550; 82570; 82962; 83036; 83735; 84100; 84484; 84540; 85025; 85027; 85610; 85730; 86850; 86900; 86901; 87086; 87635; 93005; 93010; 94760; 97116-GP; 97162-GP; 99285-25; C1713

== ENCOUNTER 2025-01-04 10:21 | Emergency (ER) | payer OTHER, BC ==
[2025-01-04] MEDS ORDERED: ACETAMINOPHEN 325 MG TABLET (FP) ONE (11:36)
[2025-01-04] MEDS ORDERED: LIDOCAINE 5% TOPICAL PATCH ONE (11:36)
[2025-01-04] MEDS: LIDOCAINE 5% TOPICAL PATCH TP ONE (11:46)
[2025-01-04] MEDS: ACETAMINOPHEN 325 MG TABLET (FP) PO ONE (11:46)
[2025-01-04 12:59] VITALS: BP 130/57; PULSE 104; RESP 20; TEMP 98.2; BMI 23.0
[2025-01-04] MEDS ORDERED: LIDOCAINE PATCH REMOVAL MC SCH (22:00)
== END 2025-01-04 14:11 | disposition home or self-care (01) ==
LOC: JER 10:21
DX: S32.591A Other specified fracture of right pubis, initial encounter for closed fracture (principal); R07.81 Pleurodynia; W06.XXXA Fall from bed, initial encounter
CPT/HCPCS: 71045-TC-FY; 71046-TC-FY; 73502-TC-RT-FY; 99284-25